=== PATIENT | female | born 1940 | race Caucasian/White ===

== ENCOUNTER → 2016-07-27 | Day surgery (SDC) | payer MEDICARE, OTHER ==
[2016-07-25 12:37] LABS: Basophils # (auto) 0 uL; Basophils % (auto) 0.6 % (0.0-2.0); DEFINITIVE VIEW TRANSMISSION; Eosinophils # (auto) 0.6 uL; Eosinophils % (auto) 7.5 % (0.0-7.0); Hematocrit 41.1 % (36.0-46.0); Hemoglobin 12.9 g/dL (12.2-16.2); Lymphocytes # (auto) 2.6 uL; Lymphocytes % (auto) 35.4 % (10.0-50.0); Mean Corpuscular Hgb Conc. 31.5 g/dL (32.0-36.0); Mean Corpuscular Volume 79.2 fL (80.0-100.0); Monocytes # (auto) 0.6 uL; Neutrophils # (auto) 3.6 uL; Neutrophils % (auto) 48.5 % (37.0-80.0); Platelet Count (auto) 308 10^3/uL (140-450); Red Cell Distribution Width 17.8 % (11.6-16.0); White Blood Cell 7.4 10^3/uL (4.4-10.8)
[2016-07-25 12:42] LABS: INR 0.98 (0.9-1.15); Prothrombin Time 10.1 sec (9.37-12.3)
[~2016-07-27] VITALS: Ht 149.9 cm; Wt 74.8 kg
[~2016-07-27] MED LIST: ASPI81TA27 PO; ESOM40CA39 OR; EZET10TA38 OR; HYDR25TA4 PO; LEVO50TA7 OR; LIDOCAINE VISCOUS 2% 15ML UD ONE; METO25TA62 OR; POT10T PO; SODIUM CHLORIDE LOCK 10 ML ONE; diphenhdrAMINE HCL 50 MG/1 ML VL ONE
[2016-07-27] MEDS: fentaNYL CITRATE 100 MCG/2 ML VL ONE ×2 (10:41→10:44)
[2016-07-27] MEDS: MIDAZOLAM HCL 5 MG/ML-1ML VIAL ONE ×2 (10:41→10:44)
[2016-07-27 11:30] VITALS: BP 110/67
== END | disposition home or self-care (01) ==
LOC: GI 09:20
PROVIDERS: ATTEND Internal Medicine Gastroenterology
DX: R13.10 Dysphagia, unspecified (principal); Z90.710 Acquired absence of both cervix and uterus
CPT/HCPCS: 36415; 43248; 85025; 85049; 85610; 85730; J2250; J3010; J7030

== ENCOUNTER → 2016-08-03 | Outpatient (CLI) | payer MEDICARE, OTHER ==
[~2016-08-03] MED LIST changes: -LIDOCAINE VISCOUS 2% 15ML UD ONE; -SODIUM CHLORIDE LOCK 10 ML ONE; -diphenhdrAMINE HCL 50 MG/1 ML VL ONE
[2016-08-03 12:03] LABS: Urine Bilirubin Negative (Negative); Urine Blood Negative /uL (Negative); Urine Color Yellow (Yellow); Urine Glucose Normal (Normal); Urine Ketone Negative (Negative); Urine Mucus FEW (None Seen); Urine Nitrite Negative (Negative); Urine RBC 2 /hpf (0 - 4); Urine Squamous Epithelial Cell FEW /hpf (<5); Urine Urobilinogen Normal (Negative); Urine pH 5.5 (5.0-8.0)
[2016-08-03 12:05] LABS: Albumin 3.8 g/dL (3.4-5.0); BUN/Creatinine Ratio 21.8; Bilirubin, Total 0.6 mg/dL (0.2-1.0); Calcium 9.1 mg/dL (8.5-10.1)
[2016-08-03 12:08] LABS: Basophils # (auto) 0 uL; Basophils % (auto) 0.6 % (0.0-2.0); DEFINITIVE VIEW TRANSMISSION; Eosinophils # (auto) 0.4 uL; Eosinophils % (auto) 6.2 % (0.0-7.0); Hematocrit 39.2 % (36.0-46.0); Hemoglobin 12.1 g/dL (12.2-16.2); Lymphocytes # (auto) 1.9 uL; Lymphocytes % (auto) 31.9 % (10.0-50.0); Mean Corpuscular Hemoglobin 24.3 pg (28.0-32.0); Mean Corpuscular Hgb Conc. 30.8 g/dL (32.0-36.0); Mean Corpuscular Volume 78.7 fL (80.0-100.0); Monocytes # (auto) 0.5 uL; Monocytes % (auto) 7.7 % (0.0-12.0); Neutrophils # (auto) 3.2 uL; Neutrophils % (auto) 53.6 % (37.0-80.0); Platelet Count (auto) 291 10^3/uL (140-450); Red Cell Distribution Width 17.7 % (11.6-16.0)
[2016-08-03 12:24] LABS: Potassium 3.8 mmol/L (3.5-5.1)
== END | disposition home or self-care (01) ==
LOC: LAB 10:35
PROVIDERS: ATTEND Internal Medicine
DX: Z00.00 Encounter for general adult medical examination without abnormal findings (principal); I10 Essential (primary) hypertension; Z68.29 Body mass index [BMI] 29.0-29.9, adult; E03.9 Hypothyroidism, unspecified
CPT/HCPCS: 36415; 80053; 80061; 81001; 82043; 83036; 84439; 84443; 84480; 84481; 85025

== ENCOUNTER → 2016-08-10 | Outpatient (CLI) | payer MEDICARE, OTHER | END | disposition home or self-care (01) | LOC: LAB 08:25 | PROVIDERS: ATTEND Internal Medicine | DX: I10 Essential (primary) hypertension (principal); Z00.00 Encounter for general adult medical examination without abnormal findings; Z68.29 Body mass index [BMI] 29.0-29.9, adult; E03.9 Hypothyroidism, unspecified | CPT/HCPCS: 82270 ==

== ENCOUNTER → 2017-10-08 | Outpatient (CLI) | payer MEDICARE, OTHER ==
[2017-10-08 08:39] LABS: Basophils # (auto) 0 uL; Basophils % (auto) 0.6 % (0.0-2.0); Eosinophils # (auto) 0.3 uL; Hematocrit 42.2 % (36.0-46.0); Hemoglobin 14.1 g/dL (12.2-16.2); Lymphocytes # (auto) 1.8 uL; Lymphocytes % (auto) 26.7 % (10.0-50.0); Mean Corpuscular Hemoglobin 29.5 pg (28.0-32.0); Mean Corpuscular Hgb Conc. 33.5 g/dL (32.0-36.0); Mean Corpuscular Volume 88.1 fL (80.0-100.0); Monocytes # (auto) 0.5 uL; Neutrophils % (auto) 60.7 % (37.0-80.0); Platelet Count (auto) 247 10^3/uL (140-450); Red Blood Cells 4.79 10^6/uL (4.0-5.20); Red Cell Distribution Width 13.1 % (11.8-14.3); White Blood Cell 6.6 10^3/uL (4.4-10.8)
[2017-10-08 08:52] LABS: Urine Bacteria FEW /hpf (None Seen); Urine Blood TRACE /uL (Negative); Urine Hyaline Cast FEW /lpf (0 - 2); Urine Mucus FEW (None Seen); Urine WBC 2 /hpf (0 - 5)
[2017-10-08 09:29] LABS: Albumin 3.7 g/dL (3.4-5.0); BUN/Creatinine Ratio 25.3; Bilirubin, Total 0.5 mg/dL (0.2-1.0); Calcium 8.9 mg/dL (8.5-10.1); Potassium 3.8 mmol/L (3.5-5.1)
== END | disposition home or self-care (01) ==
LOC: LAB 08:16
PROVIDERS: ATTEND Family Medicine
DX: I10 Essential (primary) hypertension (principal); E03.9 Hypothyroidism, unspecified; E78.2 Mixed hyperlipidemia; R79.89 Other specified abnormal findings of blood chemistry; E78.00 Pure hypercholesterolemia, unspecified; Z79.899 Other long term (current) drug therapy
CPT/HCPCS: 36415; 80053; 80061; 81001; 82306; 82607; 83036; 84443; 85025

== ENCOUNTER → 2017-12-04 | Outpatient (CLI) | payer MEDICARE, OTHER | END | disposition home or self-care (01) | LOC: LAB 09:07 | PROVIDERS: ATTEND Family Medicine | DX: E03.9 Hypothyroidism, unspecified (principal); I10 Essential (primary) hypertension; Z79.899 Other long term (current) drug therapy | CPT/HCPCS: 36415; 84443 ==

== ENCOUNTER 2018-02-18 07:51 | Day surgery (SDC) | payer MEDICARE, OTHER ==
[2018-02-14 12:23] LABS: Basophils # (auto) 0.1 uL; Basophils % (auto) 1.1 % (0.0-2.0); Eosinophils # (auto) 0.4 uL; Eosinophils % (auto) 5.8 % (0.0-7.0); Hematocrit 44.1 % (36.0-46.0); Hemoglobin 14.8 g/dL (12.2-16.2); Lymphocytes # (auto) 1.7 uL; Lymphocytes % (auto) 26.2 % (10.0-50.0); Mean Corpuscular Hemoglobin 29.7 pg (28.0-32.0); Mean Corpuscular Hgb Conc. 33.6 g/dL (32.0-36.0); Mean Corpuscular Volume 88.2 fL (80.0-100.0); Monocytes # (auto) 0.5 uL; Monocytes % (auto) 7.4 % (0.0-12.0); Neutrophils # (auto) 3.9 uL; Neutrophils % (auto) 59.5 % (37.0-80.0); Nucleated Red Blood Cells % 0.1 %; Platelet Count (auto) 276 10^3/uL (140-450); Red Cell Distribution Width 13.4 % (11.8-14.3); White Blood Cell 6.5 10^3/uL (4.4-10.8)
[2018-02-14 12:27] LABS: INR 0.96 (0.9-1.15); Partial Thromboplastin Time 26.6 sec (23.78-33.04); Prothrombin Time 10.3 sec (9.27-12.13)
[~2018-02-18] VITALS: Ht 152.4 cm; Wt 71.7 kg
[2018-02-18] MEDS ORDERED: SODIUM CHLORIDE LOCK 10 ML ONE (08:24)
[2018-02-18] MEDS ORDERED: diphenhdrAMINE HCL 50 MG/1 ML VL ONE (08:24)
[2018-02-18] MEDS ORDERED: MIDAZOLAM HCL 5 MG/ML-1ML VIAL ONE (08:24)
[2018-02-18] MEDS ORDERED: FLUMAZENIL 0.1 MG/ML INJ 10ML MDV IV ONE (08:24)
[2018-02-18] MEDS ORDERED: LIDOCAINE VISCOUS 2% 15ML UD ONE (08:24)
[2018-02-18] MEDS ORDERED: NALOXONE HCL 0.4 MG/ML VIAL ONE (08:24)
[2018-02-18] MEDS ORDERED: fentaNYL CITRATE 100 MCG/2 ML VL ONE (08:25)
[2018-02-18 09:36] VITALS: BP 124/70
== END 2018-02-18 09:41 | disposition home or self-care (01) ==
LOC: GI 07:51
PROVIDERS: ATTEND Internal Medicine Gastroenterology
DX: R13.10 Dysphagia, unspecified (principal); E66.9 Obesity, unspecified; I10 Essential (primary) hypertension; E03.9 Hypothyroidism, unspecified; E78.5 Hyperlipidemia, unspecified; K21.9 Gastro-esophageal reflux disease without esophagitis; I34.1 Nonrheumatic mitral (valve) prolapse; Z90.710 Acquired absence of both cervix and uterus; Z96.651 Presence of right artificial knee joint; Z98.890 Other specified postprocedural states; Z79.82 Long term (current) use of aspirin; Z79.899 Other long term (current) drug therapy
CPT/HCPCS: 36415; 43248; 85025; 85610; 85730; J2250; J3010; J7030; A6257

== ENCOUNTER → 2018-11-18 | Day surgery (SDC) | payer MEDICARE, OTHER ==
[2018-11-15 09:07] LABS: Basophils # (auto) 0.1 uL; Eosinophils # (auto) 0.8 uL; Eosinophils % (auto) 11.1 % (0.0-7.0); Hematocrit 44.2 % (36.0-46.0); Hemoglobin 15.1 g/dL (12.2-16.2); Mean Corpuscular Hemoglobin 31.1 pg (28.0-32.0); Mean Corpuscular Hgb Conc. 34.2 g/dL (32.0-36.0); Mean Corpuscular Volume 90.9 fL (80.0-100.0); Monocytes # (auto) 0.6 uL; Neutrophils # (auto) 3.5 uL; Neutrophils % (auto) 49.9 % (37.0-80.0); Nucleated Red Blood Cells % 0.1 %; Platelet Count (auto) 220 10^3/uL (140-450); Red Blood Cells 4.86 10^6/uL (4.0-5.20); Red Cell Distribution Width 12.8 % (11.8-14.3); White Blood Cell 6.9 10^3/uL (4.4-10.8)
[2018-11-15 09:21] LABS: INR 0.94 (0.9-1.15)
[~2018-11-18] VITALS: Ht 152.4 cm; Wt 68.9 kg
[~2018-11-18] MED LIST changes: +LIDOCAINE VISCOUS 2% 15ML UD ONE; +SODIUM CHLORIDE LOCK 10 ML ONE; +diphenhdrAMINE HCL 50 MG/1 ML VL ONE
[2018-11-18] MEDS: fentaNYL CITRATE 100 MCG/2 ML VL ONE ×2 (10:31→10:35)
[2018-11-18] MEDS: MIDAZOLAM HCL 5 MG/ML-1ML VIAL ONE ×2 (10:31→10:35)
[2018-11-18 11:25] VITALS: BP 121/68
== END | disposition home or self-care (01) ==
LOC: GI 09:19
PROVIDERS: ATTEND Internal Medicine Gastroenterology
DX: K29.50 Unspecified chronic gastritis without bleeding (principal); K21.9 Gastro-esophageal reflux disease without esophagitis; E66.9 Obesity, unspecified; Z90.710 Acquired absence of both cervix and uterus; Z68.29 Body mass index [BMI] 29.0-29.9, adult; Z79.82 Long term (current) use of aspirin; Z79.899 Other long term (current) drug therapy
CPT/HCPCS: 36415; 43239; 43450; 85025; 85610; 85730; J2250; J3010; 99152

== ENCOUNTER → 2018-12-20 | Outpatient (CLI) | payer MEDICARE, OTHER ==
[~2018-12-20] MED LIST changes: -LIDOCAINE VISCOUS 2% 15ML UD ONE; -SODIUM CHLORIDE LOCK 10 ML ONE; -diphenhdrAMINE HCL 50 MG/1 ML VL ONE
[2018-12-20 13:19] LABS: Albumin 3.5 g/dL (3.4-5.0); BUN/Creatinine Ratio 14.3
[2018-12-20 13:28] LABS: Basophils # (auto) 0.1 uL; Eosinophils # (auto) 0.3 uL; Eosinophils % (auto) 4.6 % (0.0-7.0); Hematocrit 41.8 % (36.0-46.0); Hemoglobin 14.2 g/dL (12.2-16.2); Lymphocytes # (auto) 1.3 uL; Lymphocytes % (auto) 20.2 % (10.0-50.0); Mean Corpuscular Hemoglobin 30.9 pg (28.0-32.0); Mean Corpuscular Hgb Conc. 33.8 g/dL (32.0-36.0); Mean Corpuscular Volume 91.3 fL (80.0-100.0); Monocytes # (auto) 0.4 uL; Monocytes % (auto) 6.6 % (0.0-12.0); Neutrophils # (auto) 4.4 uL; Neutrophils % (auto) 67.6 % (37.0-80.0); Platelet Count (auto) 282 10^3/uL (140-450); Red Blood Cells 4.58 10^6/uL (4.0-5.20); Red Cell Distribution Width 13.2 % (11.8-14.3); White Blood Cell 6.5 10^3/uL (4.4-10.8)
[2018-12-20 14:01] LABS: Bilirubin, Total 0.9 mg/dL (0.2-1.0); Total Protein 8.3 g/dL (6.4-8.2)
[2018-12-20 15:19] LABS: Urine Bacteria FEW /hpf (None Seen); Urine Blood Negative /uL (Negative); Urine Mucus FEW (None Seen); Urine Specific Gravity 1.026 (1.001-1.035); Urine WBC 6 /hpf (0 - 5)
== END | disposition home or self-care (01) ==
LOC: LAB 11:28
PROVIDERS: ATTEND Family Medicine
DX: E78.2 Mixed hyperlipidemia (principal); I10 Essential (primary) hypertension; Z79.899 Other long term (current) drug therapy
CPT/HCPCS: 36415; 80053; 80061; 81001; 82306; 84443; 85025

== ENCOUNTER → 2019-01-06 | Outpatient (CLI) | payer MEDICARE, OTHER ==
[2019-01-06 13:50] LABS: Albumin 3.6 g/dL (3.4-5.0); Bilirubin, Direct 0.2 mg/dL (0-0.2)
[2019-01-06 13:52] LABS: Bilirubin, Total 0.7 mg/dL (0.2-1.0); Total Protein 7.9 g/dL (6.4-8.2)
[2019-01-06 13:58] LABS: Hepatitis B Surface Antibody Negative
[2019-01-06 14:31] LABS: Hepatitis A Total Antibody Positive
[2019-01-06 17:26] LABS: Hepatitis B Core Total AB Negative; Hepatitis B Surface Antigen Negative (Negative); Hepatitis C Antibody Negative (Negative)
== END | disposition home or self-care (01) ==
LOC: LAB 10:57
PROVIDERS: ATTEND Family Medicine
DX: R94.5 Abnormal results of liver function studies (principal); Z11.59 Encounter for screening for other viral diseases
CPT/HCPCS: 36415; 80076; 86704; 86706; 86708; 86803; 87340

== ENCOUNTER → 2019-02-14 | Outpatient (CLI) | payer MEDICARE, OTHER ==
[~2019-02-14] MED LIST changes: +ASPI-404 PO; -ASPI81TA27 PO; +EZET10TA24 OR; -EZET10TA38 OR
[2019-02-14 10:08] LABS: Potassium 3.6 mmol/L (3.5-5.1)
[2019-02-14 10:25] LABS: Albumin 3.4 g/dL (3.4-5.0); BUN/Creatinine Ratio 23.2; Bilirubin, Total 0.5 mg/dL (0.2-1.0); Calcium 8.8 mg/dL (8.5-10.1); Total Protein 7.7 g/dL (6.4-8.2)
== END | disposition home or self-care (01) ==
LOC: LAB 08:48
PROVIDERS: ATTEND Family Medicine
DX: E78.2 Mixed hyperlipidemia (principal); R94.5 Abnormal results of liver function studies
CPT/HCPCS: 36415; 80053; 80061

== ENCOUNTER 2019-04-17 16:29 | Inpatient (IN) | payer MEDICARE, OTHER ==
[~2019-04-17] VITALS: Ht 152.4 cm; Wt 76.8 kg
[2019-04-17] MEDS ORDERED: LABETALOL HCL 5 MG/ML ML 20ML VIAL IV ONE (17:00)
[2019-04-17 17:13] LABS: Basophils # (auto) 0.1 uL; Basophils % (auto) 0.9 % (0.0-2.0); Eosinophils # (auto) 0.6 uL; Eosinophils % (auto) 8.1 % (0.0-7.0); Hematocrit 41.7 % (36.0-46.0); Hemoglobin 14.3 g/dL (12.2-16.2); Lymphocytes # (auto) 1.7 uL; Lymphocytes % (auto) 24.2 % (10.0-50.0); Mean Corpuscular Hemoglobin 30.5 pg (28.0-32.0); Mean Corpuscular Hgb Conc. 34.2 g/dL (32.0-36.0); Mean Corpuscular Volume 89.1 fL (80.0-100.0); Monocytes # (auto) 0.6 uL; Monocytes % (auto) 8.4 % (0.0-12.0); Neutrophils # (auto) 4.1 uL; Neutrophils % (auto) 58.4 % (37.0-80.0); Nucleated Red Blood Cells % 0.1 %; Platelet Count (auto) 212 10^3/uL (140-450); Red Blood Cells 4.68 10^6/uL (4.0-5.20); Red Cell Distribution Width 13.3 % (11.8-14.3)
[2019-04-17 17:18] LABS: Alanine Aminotransferase 26 U/L (13-56); Albumin 3.6 g/dL (3.4-5.0); Anion Gap 8 (5-15); Aspartate Aminotransferase 25 U/L (15-37); BUN/Creatinine Ratio 14.7; Blood Urea Nitrogen 14 mg/dL (7-18); Calcium 8.9 mg/dL (8.5-10.1); Carbon Dioxide 27 mmol/L (21-32); Chloride 105 mmol/L (98-107); GFR African American 73 mL/min; GFR Non-African American 61 mL/min; Glucose 103 mg/dL (74-106); Potassium 3.6 mmol/L (3.5-5.1); Sodium 140 mmol/L (136-145)
[2019-04-17 17:23] LABS: Alkaline Phosphatase 76 U/L (45-117); Bilirubin, Total 0.7 mg/dL (0.2-1.0); Total Protein 7.7 g/dL (6.4-8.2)
[2019-04-17 18:48] LABS: Urine Bacteria FEW /hpf (None Seen); Urine Blood Negative /uL (Negative); Urine Specific Gravity 1.009 (1.001-1.035); Urine WBC 2 /hpf (0 - 5)
[2019-04-17] MEDS ORDERED: NITROGLYCERIN 0.4 MG SL TAB SL PRN (19:45)
[2019-04-17] MEDS ORDERED: MORPHINE SULF INJ 2 MG/ML SYRINGE 1ML IV PRN (19:45)
[2019-04-17] MEDS ORDERED: ONDANSETRON HCL 4 MG/2 ML VIAL IV PRN (21:15)
[2019-04-17] MEDS ORDERED: TEMAZEPAM 15 MG CAP PO PRN (21:15)
[2019-04-17] MEDS ORDERED: ACETAMINOPHEN 325 MG TAB PO PRN (21:15)
[2019-04-17] MEDS ORDERED: HYDROcodone-ACET 5/325MG TAB PO PRN (21:15)
[2019-04-17] MEDS ORDERED: FAMOTIDINE 20 MG TAB PO SCH (22:00)
[2019-04-17] MEDS ORDERED: ATORVASTATIN 20 MG TAB PO ONE (22:45)
[2019-04-17 22:50] VITALS: BP 159/79
--- NOTE | 2019-04-17 22:50 | NUR ---
Telemetry admit from [facility] admitted to Telemetry unit after SBAR received. Patient oriented to ANNE ASH, RN primary RN, unit, room, bed, and unit policies regarding patient care and visiting hours. Patient now on continuous telemetry monitoring, tele box # 72 and telemetry reading on arrival to unit is SR. Patient placed on bedside oxygen, weighed by bedscale and encouraged to call if they need something. All questions and concerns addressed, patient verbalized understanding.
[2019-04-17] MEDS: ASPirin 81 mg TAB PO SCH (23:09)
[2019-04-18 05:05] VITALS: BP 148/84
[2019-04-18] MEDS: LEVOTHYROXINE SODIUM 50 MCG TAB PO SCH (06:30)
[2019-04-18 07:11] LABS: Basophils # (auto) 0.1 uL; Basophils % (auto) 1.2 % (0.0-2.0); Eosinophils # (auto) 0.4 uL; Hematocrit 42.1 % (36.0-46.0); Hemoglobin 14.4 g/dL (12.2-16.2); Lymphocytes # (auto) 1.4 uL; Mean Corpuscular Hemoglobin 30.9 pg (28.0-32.0); Mean Corpuscular Hgb Conc. 34.3 g/dL (32.0-36.0); Mean Corpuscular Volume 90.1 fL (80.0-100.0); Monocytes # (auto) 0.5 uL; Neutrophils # (auto) 3.6 uL; Neutrophils % (auto) 59.8 % (37.0-80.0); Nucleated Red Blood Cells % 0.1 %; Platelet Count (auto) 205 10^3/uL (140-450); Red Blood Cells 4.67 10^6/uL (4.0-5.20); Red Cell Distribution Width 13.6 % (11.8-14.3)
[2019-04-18 07:28] LABS: INR 1.02 (0.9-1.15); Partial Thromboplastin Time 26.8 sec (23.64-32.05)
[2019-04-18 07:32] LABS: Albumin 3.3 g/dL (3.4-5.0); Calcium 8.6 mg/dL (8.5-10.1); Magnesium 2.4 mg/dL (1.6-2.6); Potassium 3.2 mmol/L (3.5-5.1)
[2019-04-18 07:37] LABS: BUN/Creatinine Ratio 18.3; Bilirubin, Total 0.8 mg/dL (0.2-1.0); Cholesterol 158 mg/dL (< 200); HDL Cholesterol 43 mg/dL (40-59); LDL Cholesterol 111 mg/dL (< 100); Total Protein 7.4 g/dL (6.4-8.2); Triglycerides 153 mg/dL (< 150)
--- NOTE | 2019-04-18 07:50 | NUR ---
Opening Shift Note Assumed care of patient, AAx4. No S/S of distress/SOB or pain. Patient denies chest pain. Respirations are even, unlabored, and symmetrical chest shape. Patient has left AC 22 gauge saline locked. Patient is NPO. Instructed on POC and to call for assist PRN, will continue to monitor for changes Q1hr and PRN.
--- NOTE | 2019-04-18 07:54 | NUR ---
High Critical Value Received critical lab value for troponin. audio operator hospitalist, CLAU Smith was paged and notified for values 0.607 and 1.24. Recommendation was to ensure patient is NPO and to ensure that cardiac consult is in place. Will follow-up with Dr. Hernandez for consult.
--- NOTE | 2019-04-18 08:24 | NUR ---
Notified - Dr. Hernandez Updated Dr. Hernandez of patient's critical troponin value and patient's status. POC discussed. Orders received and read back to verify. Patient is asymptomatic. Will continue to monitor q1hr & PRN.
[2019-04-18 09:00] VITALS: BP 149/81
--- NOTE | 2019-04-18 09:58 | NUR ---
TRANSFER: Per Nayeli at [facility] , pt is not a candidate for heart transplant. Pt is too nutritionally unsound for evaluation at this time. Dr. Hernandez spoke extensively to [facility] chemistry technician and this was the outcome of that conversation, I paged Dr. Moise to see what is D/C plan for this pt Addendum: 04/18/19 at 1004 by Marissa Chung RN CM wrong pt
[2019-04-18] MEDS: ENOXAPARIN SOD 80 MG/0.8ML SYRINGE SC SCH ×2 (10:00→22:14)
[2019-04-18] MEDS ORDERED: ASPirin 81 mg TAB PO SCH (10:00)
[2019-04-18] MEDS: FAMOTIDINE 20 MG TAB PO SCH (10:14)
[2019-04-18] MEDS: HCTZ 25 MG TAB PO SCH (10:15)
[2019-04-18] MEDS: CLOPIDOGREL BISULFATE 75 MG TAB PO SCH (10:15)
[2019-04-18] MEDS: METOPROLOL SUCCINATE XL 50 MG TAB PO SCH (10:16)
[2019-04-18] MEDS: ASPirin 81 mg TAB PO SCH (10:17)
--- NOTE | 2019-04-18 10:20 | NUR ---
Medication held per MD order Scheduled Lovenox held for possible procedure per Dr. Hernandez.
--- NOTE | 2019-04-18 11:15 | NUR ---
MD Communication Dr. Suggs was notified in person that patient's potassium level 3.2. MD verbalized understanding.
[2019-04-18] MEDS ORDERED: ADENOSINE 61 MG in GIVE UN-DILUTED 0 ML IV STA (11:56)
[2019-04-18 13:00] VITALS: BP 148/78
--- NOTE | 2019-04-18 13:18 | NUR ---
Patient off unit via wheelchair to stress test. Respirations even and unlabored, no distress noted.
--- NOTE | 2019-04-18 14:20 | NUR ---
Sociial Service consult regarding Advance Directives. Provided pt with information on Advance Directives and Durable Power of real estate associate attorney form. Pt verbalized understanding and refused the information. Pt already has one in place, Will contact Analytics Analyst for any further concerns or issues.
--- NOTE | 2019-04-18 14:34 | NUR ---
Patient returned to room via wheelchair respiration even and unlabored, no distress noted. Call light within reach.
[2019-04-18 17:04] VITALS: BP 136/70
--- NOTE | 2019-04-18 17:46 | NUR ---
Patient transferred to room 277B All of patient's belongings transferred with the patient. Patient's significant other at bedside.
--- NOTE | 2019-04-18 18:30 | NUR ---
MD was at bedside - Dr. Mary ROSARIO updated patient and patient's spouse on echocardiogram and stress test results as well as the POC. Patient and patient's spouse verbalized understanding to all.
--- NOTE | 2019-04-18 18:59 | NUR ---
Closing note - care endorsed to ELAINE Carter Patient resting in bed with even and unlabored respirations, no distress noted. Fall precautions in place with call light within reach. Patient denies CP. Further care endorsed to ELAINE Carter.
--- NOTE | 2019-04-18 19:00 | NUR ---
Opening Shift Note Assumed care of patient, awake and alert. No S/S of distress/SOB or pain. Instructed on POC and to call for assist PRN, will continue to monitor for changes Q1hr and PRN.
[2019-04-18 21:54] VITALS: BP 126/70
[2019-04-18] MEDS: ATORVASTATIN 20 MG TAB PO SCH (22:14)
[2019-04-19 05:25] VITALS: BP 133/72
[2019-04-19] MEDS: LEVOTHYROXINE SODIUM 50 MCG TAB PO SCH (06:30)
[2019-04-19 09:00] VITALS: BP 118/70
[2019-04-19] MEDS: CLOPIDOGREL BISULFATE 75 MG TAB PO SCH (09:51)
[2019-04-19] MEDS: FAMOTIDINE 20 MG TAB PO SCH (09:51)
[2019-04-19] MEDS: ENOXAPARIN SOD 80 MG/0.8ML SYRINGE SC SCH ×2 (09:51→21:29)
[2019-04-19] MEDS: ASPirin 81 mg TAB PO SCH (09:51)
[2019-04-19] MEDS: METOPROLOL SUCCINATE XL 50 MG TAB PO SCH (09:51)
[2019-04-19] MEDS: HCTZ 25 MG TAB PO SCH (09:52)
[2019-04-19 13:00] VITALS: BP 128/75
--- NOTE | 2019-04-19 14:41 | NUR ---
Consents Signed for [facility] 04/21/19 Pt stated she did not have any questions about the procedure on Sunday. Forms are signed and placed in the chart. Pt and requested a copy of consents; provided to pt.
[2019-04-19 17:00] VITALS: BP 116/83
[2019-04-19] MEDS: ATORVASTATIN 20 MG TAB PO SCH (21:29)
[2019-04-19 21:30] VITALS: BP 122/74
[2019-04-20 05:46] VITALS: BP 128/82
[2019-04-20] MEDS: LEVOTHYROXINE SODIUM 50 MCG TAB PO SCH (06:17)
[2019-04-20 06:24] LABS: Basophils # (auto) 0.1 uL; Basophils % (auto) 1.2 % (0.0-2.0); Eosinophils # (auto) 0.6 uL; Eosinophils % (auto) 8.6 % (0.0-7.0); Hematocrit 43.9 % (36.0-46.0); Hemoglobin 15.1 g/dL (12.2-16.2); Lymphocytes # (auto) 2.1 uL; Lymphocytes % (auto) 31.9 % (10.0-50.0); Mean Corpuscular Hemoglobin 30.7 pg (28.0-32.0); Mean Corpuscular Hgb Conc. 34.5 g/dL (32.0-36.0); Monocytes # (auto) 0.6 uL; Monocytes % (auto) 9.6 % (0.0-12.0); Neutrophils # (auto) 3.3 uL; Neutrophils % (auto) 48.7 % (37.0-80.0); Nucleated Red Blood Cells % 0.1 %; Platelet Count (auto) 209 10^3/uL (140-450); Red Blood Cells 4.93 10^6/uL (4.0-5.20); Red Cell Distribution Width 13.4 % (11.8-14.3); White Blood Cell 6.7 10^3/uL (4.4-10.8)
[2019-04-20 06:49] LABS: BUN/Creatinine Ratio 23.5; Potassium 3.2 mmol/L (3.5-5.1)
--- NOTE | 2019-04-20 07:33 | NUR ---
Opening Note Assumed pt care from [facility] nurse. Pt is a/ox4 with no s/s of distress or SOB. Pt is currently laying in bed with no complaints. Discussed POC with pt; pt verbalized understanding. Safety measures maintained with call light within reach, bed in lowest position and side rails up. Will continue to monitor for changes q1hr and prn.
[2019-04-20 08:30] VITALS: BP 114/68
[2019-04-20] MEDS: ASPirin 81 mg TAB PO SCH (09:09)
[2019-04-20] MEDS: CLOPIDOGREL BISULFATE 75 MG TAB PO SCH (09:09)
[2019-04-20] MEDS: ENOXAPARIN SOD 80 MG/0.8ML SYRINGE SC SCH ×2 (09:09→21:53)
[2019-04-20] MEDS: FAMOTIDINE 20 MG TAB PO SCH (09:09)
[2019-04-20] MEDS: HCTZ 25 MG TAB PO SCH (09:09)
[2019-04-20] MEDS: METOPROLOL SUCCINATE XL 50 MG TAB PO SCH (09:09)
[2019-04-20 12:32] VITALS: BP 143/91
[2019-04-20] MEDS ORDERED: POTASSIUM EFFERVESENT TAB 25 MEQ PO ONE (14:30)
[2019-04-20 16:49] VITALS: BP 149/63
[2019-04-20 16:52] VITALS: BP 138/77
[2019-04-20 20:33] LABS: BUN/Creatinine Ratio 13.6
[2019-04-20] MEDS: ATORVASTATIN 20 MG TAB PO SCH (21:36)
--- NOTE | 2019-04-20 21:38 | NUR ---
DR. HAY CALLED TO ORDER ME TO PUT IN AN ORDER FOR LEFT HEART CATH/ N-STEMI, TO BE DONE BY DR. PELAEZ. REPEATED ORDERS TO VERIFIED WILL FOLLOW ORDERED.
[2019-04-20 22:00] VITALS: BP 106/68
[2019-04-21 05:44] VITALS: BP 134/73
[2019-04-21 06:17] LABS: Basophils # (auto) 0.1 uL; Basophils % (auto) 1.2 % (0.0-2.0); Eosinophils # (auto) 0.6 uL; Eosinophils % (auto) 9.8 % (0.0-7.0); Hematocrit 43.8 % (36.0-46.0); Hemoglobin 15.2 g/dL (12.2-16.2); Lymphocytes % (auto) 33.6 % (10.0-50.0); Mean Corpuscular Hgb Conc. 34.7 g/dL (32.0-36.0); Mean Corpuscular Volume 89.4 fL (80.0-100.0); Monocytes # (auto) 0.6 uL; Monocytes % (auto) 9.2 % (0.0-12.0); Neutrophils # (auto) 2.8 uL; Neutrophils % (auto) 46.2 % (37.0-80.0); Nucleated Red Blood Cells % 0.2 %; Platelet Count (auto) 204 10^3/uL (140-450); Red Blood Cells 4.89 10^6/uL (4.0-5.20); Red Cell Distribution Width 13.2 % (11.8-14.3)
[2019-04-21] MEDS: LEVOTHYROXINE SODIUM 50 MCG TAB PO SCH (06:17)
[2019-04-21 06:39] LABS: BUN/Creatinine Ratio 22.1; Calcium 8.9 mg/dL (8.5-10.1); Potassium 3.6 mmol/L (3.5-5.1)
[2019-04-21 08:00] VITALS: BP 127/75
--- NOTE | 2019-04-21 09:07 | NUR ---
Opening Shift Note Assumed care of patient, awake and alert. No S/S of distress/SOB or pain. Instructed on POC and to call for assist PRN, will continue to monitor for changes Q1hr and PRN. Addendum: 04/21/19 at 0908 by Yamileth Lentz RN Time should be 08:10
[2019-04-21 09:14] VITALS: BP 125/75
[2019-04-21] MEDS: ENOXAPARIN SOD 80 MG/0.8ML SYRINGE SC SCH ×2 (10:00→21:51)
[2019-04-21] MEDS: ASPirin 81 mg TAB PO SCH (10:02)
[2019-04-21] MEDS: FAMOTIDINE 20 MG TAB PO SCH (10:02)
[2019-04-21] MEDS: CLOPIDOGREL BISULFATE 75 MG TAB PO SCH (10:02)
[2019-04-21] MEDS: METOPROLOL SUCCINATE XL 50 MG TAB PO SCH (10:04)
[2019-04-21] MEDS: HCTZ 25 MG TAB PO SCH (10:05)
[2019-04-21 13:00] VITALS: BP 126/87
[2019-04-21] MEDS ORDERED: ANGIOMAX 250 MG VIAL IV ONE (13:40)
[2019-04-21] MEDS ORDERED: fentaNYL CITRATE 100 MCG/2 ML VL ONE (13:40)
[2019-04-21] MEDS ORDERED: MIDAZOLAM HCL 1MG/1ML-2 ML VIAL ONE (13:41)
[2019-04-21] MEDS ORDERED: SODIUM CHL 0.9% 0 ML ONE (13:41)
[2019-04-21] MEDS ORDERED: IOHEXOL 350 MG/ML 100ML IJ ONE ×2 (13:53→13:59)
[2019-04-21] MEDS ORDERED: LIDOCAINE 2%HCL (LOCAL ANESTH.) INJ 20ML MDV ONE (13:59)
--- NOTE | 2019-04-21 14:37 | NUR ---
Nutrition Assessment Notes please see attached link for complete assessment Est. Needs ABW 60 [id number] kcal (23-25 kcal/kgBW), 60-66 gms pro (1.0-1.1 gms/kgBW). Will continue to monitor pertinent labs and reassess nutrient need prn Addendum: 04/21/19 at [address] Amended: Links added.
[2019-04-21 17:29] VITALS: BP 128/79
--- NOTE | 2019-04-21 19:40 | NUR ---
Opening Shift Note Assumed care of patient, awake and alert. No S/S of distress/SOB or pain. Instructed on POC and to call for assist PRN, will continue to monitor for changes Q1hr and PRN. Patient happy to know about her procedure results.
[2019-04-21] MEDS: ATORVASTATIN 20 MG TAB PO SCH (21:51)
[2019-04-21 21:59] VITALS: BP 122/70
[2019-04-22 05:43] VITALS: BP 130/71
[2019-04-22 05:57] LABS: Basophils # (auto) 0.1 uL; Basophils % (auto) 0.9 % (0.0-2.0); Eosinophils # (auto) 0.6 uL; Eosinophils % (auto) 8.3 % (0.0-7.0); Hematocrit 42.7 % (36.0-46.0); Hemoglobin 14.9 g/dL (12.2-16.2); Lymphocytes % (auto) 27.8 % (10.0-50.0); Mean Corpuscular Hemoglobin 31.2 pg (28.0-32.0); Mean Corpuscular Hgb Conc. 34.8 g/dL (32.0-36.0); Mean Corpuscular Volume 89.5 fL (80.0-100.0); Monocytes # (auto) 0.6 uL; Monocytes % (auto) 8.9 % (0.0-12.0); Neutrophils # (auto) 3.9 uL; Neutrophils % (auto) 54.1 % (37.0-80.0); Platelet Count (auto) 204 10^3/uL (140-450); Red Blood Cells 4.77 10^6/uL (4.0-5.20); Red Cell Distribution Width 13.5 % (11.8-14.3); White Blood Cell 7.2 10^3/uL (4.4-10.8)
[2019-04-22] MEDS: LEVOTHYROXINE SODIUM 50 MCG TAB PO SCH (06:17)
[2019-04-22 06:35] LABS: Calcium 8.8 mg/dL (8.5-10.1); Potassium 3.4 mmol/L (3.5-5.1)
[2019-04-22 06:38] LABS: Albumin 3.4 g/dL (3.4-5.0); BUN/Creatinine Ratio 24.1; Bilirubin, Total 0.7 mg/dL (0.2-1.0); Total Protein 7.2 g/dL (6.4-8.2)
--- NOTE | 2019-04-22 08:00 | NUR ---
Patient holding her IV catheter, bleeding noted on the left antecubital area. Patient stated she accidentally pulled the IV line out. Cleaned the AC area, pressure dressing applied. Patient refused to have another IV line insertion, for possible discharge today. Patient is ambulatory, steady gait noted.
[2019-04-22 09:00] VITALS: BP 148/96
[2019-04-22] MEDS: ENOXAPARIN SOD 80 MG/0.8ML SYRINGE SC SCH (10:00)
--- NOTE | 2019-04-22 10:15 | NUR ---
Patient sitting on bed. at bedside.
[2019-04-22] MEDS: FAMOTIDINE 20 MG TAB PO SCH (10:16)
[2019-04-22] MEDS: CLOPIDOGREL BISULFATE 75 MG TAB PO SCH (10:17)
[2019-04-22] MEDS: ASPirin 81 mg TAB PO SCH (10:17)
[2019-04-22] MEDS: HCTZ 25 MG TAB PO SCH (10:18)
[2019-04-22] MEDS: METOPROLOL SUCCINATE XL 50 MG TAB PO SCH (10:18)
--- NOTE | 2019-04-22 11:30 | NUR ---
Dr. Moon at bedside. MD to discharge the patient today, he will call Dr. Merritt regarding medications as per Cardiology.
[2019-04-22 13:00] VITALS: BP 159/79
[2019-04-22 13:02] VITALS: BP 148/96
--- NOTE | 2019-04-22 13:28 | NUR ---
Discharge instructions given as ordered. Encourage to follow up with PMD as instructed. All questions and concerns addressed. Patient verbalized understanding. Medication reconciliation form completed and copy given to patient. IV line already out at 0800 am today. Telemetry unit returned to ICU. Patient is ambulatory, steady gait noted, refused to be taken to vehicle via wheelchair, patient with all personal belongings, accompanied by . No distress noted at time of departure.
--- NOTE | 2019-04-22 16:50 | NUR ---
assessment Patient has no post discharge needs at this time. Addendum: 04/22/19 at 1651 by Kaylie ARTEAGA Amended: Links added.
[2019-05-09] MEDS ORDERED: APIX5TAB PO (12:34)
== END 2019-04-22 13:28 | disposition home or self-care (01) | DRG 280 ==
LOC: ER 16:29 → EDBD 16:29 → TELE 16:30 → TELE-WESTW 22:56
PROVIDERS: ADMIT Hospitalist; ATTEND Internal Medicine
PROC: 4A023N7 Measurement of Cardiac Sampling and Pressure, Left Heart, Percutaneous Approach (ICD-10-PCS; principal; 2019-04-21)
PROC: B2111ZZ Fluoroscopy of Multiple Coronary Arteries using Low Osmolar Contrast (ICD-10-PCS; 2019-04-21)
PROC: B2151ZZ Fluoroscopy of Left Heart using Low Osmolar Contrast (ICD-10-PCS; 2019-04-21)
DX: I21.4 Non-ST elevation (NSTEMI) myocardial infarction (principal); N17.0 Acute kidney failure with tubular necrosis; I16.1 Hypertensive emergency; N39.0 Urinary tract infection, site not specified; N18.9 Chronic kidney disease, unspecified; I12.9 Hypertensive chronic kidney disease with stage 1 through stage 4 chronic kidney disease, or unspecified chronic kidney disease; E78.5 Hyperlipidemia, unspecified; E03.9 Hypothyroidism, unspecified; E66.9 Obesity, unspecified; E87.6 Hypokalemia; I35.8 Other nonrheumatic aortic valve disorders; Z79.899 Other long term (current) drug therapy; Z90.710 Acquired absence of both cervix and uterus; Z68.33 Body mass index [BMI] 33.0-33.9, adult
CPT/HCPCS: 36415; 71045; 78452; 80048; 80053; 80061; 81001; 83036; 83735; 84443; 84484; 85025; 85610; 85730; 86850; 86900; 86901; 87086; 93005; 93017; 93306; 93458; 96365; 96375; 99152; G0378; J0153; J2250

== ENCOUNTER 2019-05-08 01:50 | Inpatient (IN) | payer MEDICARE, OTHER ==
[~2019-05-08] VITALS: Ht 152.4 cm; Wt 76.0 kg
[2019-05-08] MEDS ORDERED: ADENOSINE 6 MG/2 ML INJ IV ONE ×2 (02:15)
[2019-05-08 02:31] LABS: Basophils # (auto) 0.1 uL; Basophils % (auto) 0.9 % (0.0-2.0); Eosinophils # (auto) 0.7 uL; Eosinophils % (auto) 7.3 % (0.0-7.0); Hemoglobin 15.2 g/dL (12.2-16.2); Lymphocytes % (auto) 30.4 % (10.0-50.0); Mean Corpuscular Hemoglobin 30.7 pg (28.0-32.0); Mean Corpuscular Hgb Conc. 34.5 g/dL (32.0-36.0); Mean Corpuscular Volume 88.8 fL (80.0-100.0); Monocytes # (auto) 0.9 uL; Monocytes % (auto) 8.8 % (0.0-12.0); Neutrophils # (auto) 5.1 uL; Neutrophils % (auto) 52.6 % (37.0-80.0); Nucleated Red Blood Cells % 0.1 %; Platelet Count (auto) 273 10^3/uL (140-450); Red Blood Cells 4.96 10^6/uL (4.0-5.20); Red Cell Distribution Width 13.5 % (11.8-14.3); White Blood Cell 9.7 10^3/uL (4.4-10.8)
[2019-05-08] MEDS ORDERED: DILTIAZEM 125mg/125ml BAG KIT 100 ML IV SCH (02:38)
[2019-05-08] MEDS ORDERED: DIGOXIN (250MCG/ML) 2 ML AMPULE ONE (02:41)
[2019-05-08] MEDS ORDERED: DILTIAZEM HCL 25 MG/5 ML VIAL IV ONE (02:45)
[2019-05-08] MEDS ORDERED: DIGOXIN (250MCG/ML) 2 ML AMPULE IV ONE (02:45)
[2019-05-08 02:51] LABS: Alanine Aminotransferase 28 U/L (13-56); Albumin 3.7 g/dL (3.4-5.0); Anion Gap 9 (5-15); Aspartate Aminotransferase 21 U/L (15-37); Blood Urea Nitrogen 18 mg/dL (7-18); Calcium 8.7 mg/dL (8.5-10.1); Carbon Dioxide 26 mmol/L (21-32); Chloride 104 mmol/L (98-107); GFR African American 78 mL/min; GFR Non-African American 65 mL/min; Glucose 112 mg/dL (74-106); Magnesium 2.2 mg/dL (1.6-2.6); Potassium 3.2 mmol/L (3.5-5.1); Sodium 139 mmol/L (136-145)
[2019-05-08 02:56] LABS: Alkaline Phosphatase 75 U/L (45-117); Bilirubin, Total 0.8 mg/dL (0.2-1.0); Total Protein 7.9 g/dL (6.4-8.2)
[2019-05-08 05:24] LABS: Urine Bacteria NONE SEEN /hpf (None Seen); Urine Blood Negative /uL (Negative); Urine Specific Gravity 1.009 (1.001-1.035); Urine WBC 1 /hpf (0 - 5)
[2019-05-08] MEDS ORDERED: POTASSIUM CHL 20 Meq TABLET PO ONE ×2 (06:30→11:15)
[2019-05-08] MEDS ORDERED: ONDANSETRON HCL 4 MG/2 ML VIAL IV PRN (06:30)
[2019-05-08] MEDS ORDERED: ACETAMINOPHEN 325 MG TAB PO PRN (06:30)
[2019-05-08] MEDS ORDERED: TEMAZEPAM 15 MG CAP PO PRN (06:30)
[2019-05-08] MEDS ORDERED: NITROGLYCERIN 0.4 MG SL TAB SL PRN (07:00)
[2019-05-08] MEDS ORDERED: MORPHINE SULF INJ 2 MG/ML SYRINGE 1ML IV PRN (07:00)
[2019-05-08] MEDS: LEVOTHYROXINE SODIUM 25 MCG TAB PO SCH (07:12)
[2019-05-08] MEDS: METOPROLOL SUCCINATE XL 50 MG TAB PO SCH (07:13)
[2019-05-08 10:00] VITALS: BP 133/69
[2019-05-08] MEDS ORDERED: ASPirin 81 mg TAB PO SCH (10:00)
[2019-05-08] MEDS ORDERED: ENOXAPARIN SOD 40 MG/0.4 ML SYRINGE SC SCH (10:00)
[2019-05-08] MEDS: VYTORIN PO SCH (10:00)
--- NOTE | 2019-05-08 10:10 | NUR ---
Telemetry admit from [facility] admitted to Telemetry unit after SBAR received from ELAINE Josue. Patient oriented to TRICE CHU RN primary RN, unit, room, bed, and unit policies regarding patient care and visiting hours. Patient now on continuous telemetry monitoring, tele box #60 and telemetry reading on arrival to unit is NSR 60bpm. Patient weighed by bedscale and encouraged to call if they need something with call light within reach. Bed in low/locked position, bed rails up x2. All questions and concerns addressed, patient verbalized understanding.
[2019-05-08 10:45] VITALS: BP 133/69
[2019-05-08] MEDS: FAMOTIDINE 20 MG TAB PO SCH ×2 (10:47→21:55)
[2019-05-08] MEDS: APIXABAN 5 MG TAB PO SCH ×2 (10:47→21:55)
[2019-05-08] MEDS: HCTZ 25 MG TAB PO SCH (10:48)
[2019-05-08 13:00] VITALS: BP 122/79
--- NOTE | 2019-05-08 14:15 | NUR ---
LAB MRSA SWAB SENT PER MD ORDER
[2019-05-08 17:00] VITALS: BP 119/70
--- NOTE | 2019-05-08 17:27 | NUR ---
PT REPORTS THAT SHE WALKS FINE AND DOES NOT NEED P.T.
--- NOTE | 2019-05-08 19:30 | NUR ---
RECEIVED PATIENT FROM DAY SHIFT RN. PATIENT RESTING IN BED. NO S/S OF DISTRESS NOTED. DENIED PAIN FOR NOW. POC INSTRUCTED AND ENCOURAGED PATIENT TO CALL FOR FINANCIAL AIDS OFFICER IF NEEDED. BED IN LOWEST POSITION WITH SIDE RAILS UP X 2. CALL KIRBY WITHIN REACH. ALARM ON. CONTINUE TO MONITOR FOR CHANGES Q1H AND PRN. .
--- NOTE | 2019-05-08 21:37 | NUR ---
PATIENT WALKED TO BATHROOM AND BACK TO BED WITH STEADY GAIT. NO S/S OF DISTRESS NOTED. DENIED ANY PAIN AND CHEST DISCOMFORT. CONTINUE TO MONITOR.
[2019-05-08 22:00] VITALS: BP 114/55
[2019-05-08] MEDS ORDERED: ATORVASTATIN 20 MG TAB PO SCH (22:00)
--- NOTE | 2019-05-09 02:45 | NUR ---
PATIENT SLEEPING. NO S/S OF DISTRESS NOTED. CONTINUE CARE.
[2019-05-09 05:00] VITALS: BP 118/63
[2019-05-09] MEDS: LEVOTHYROXINE SODIUM 25 MCG TAB PO SCH (06:26)
[2019-05-09 07:06] LABS: Basophils # (auto) 0.1 uL; Basophils % (auto) 1.4 % (0.0-2.0); Eosinophils # (auto) 0.7 uL; Eosinophils % (auto) 11.3 % (0.0-7.0); Hemoglobin 14.1 g/dL (12.2-16.2); Lymphocytes # (auto) 1.8 uL; Lymphocytes % (auto) 28.3 % (10.0-50.0); Mean Corpuscular Hemoglobin 31.2 pg (28.0-32.0); Mean Corpuscular Hgb Conc. 34.3 g/dL (32.0-36.0); Mean Corpuscular Volume 90.9 fL (80.0-100.0); Monocytes # (auto) 0.6 uL; Monocytes % (auto) 8.8 % (0.0-12.0); Neutrophils # (auto) 3.3 uL; Neutrophils % (auto) 50.2 % (37.0-80.0); Nucleated Red Blood Cells % 0.1 %; Platelet Count (auto) 226 10^3/uL (140-450); Red Blood Cells 4.51 10^6/uL (4.0-5.20); Red Cell Distribution Width 13.5 % (11.8-14.3); White Blood Cell 6.5 10^3/uL (4.4-10.8)
[2019-05-09 07:09] LABS: Calcium 8.7 mg/dL (8.5-10.1); Magnesium 2.3 mg/dL (1.6-2.6); Potassium 3.8 mmol/L (3.5-5.1)
[2019-05-09 07:11] LABS: BUN/Creatinine Ratio 21.5
--- NOTE | 2019-05-09 07:45 | NUR ---
Opening Shift Note Assumed care of patient, awake and alert. Respiratory even and unlabored. No S/S of distress/SOB or pain. Skin is warm and dry to touch. Instructed on POC and to call for assist PRN, will continue to monitor for changes Q1hr and PRN.
[2019-05-09 09:00] VITALS: BP 131/63
[2019-05-09] MEDS: FAMOTIDINE 20 MG TAB PO SCH (09:14)
[2019-05-09] MEDS: HCTZ 25 MG TAB PO SCH (09:14)
[2019-05-09] MEDS: APIXABAN 5 MG TAB PO SCH (09:14)
[2019-05-09] MEDS: VYTORIN PO SCH (09:15)
[2019-05-09] MEDS: METOPROLOL SUCCINATE XL 50 MG TAB PO SCH (09:15)
[2019-05-09] MEDS ORDERED: APIX5TAB PO (12:34)
[2019-05-09] MEDS ORDERED: POTASSIUM CHL 20 Meq TABLET PO ONE (12:45)
[2019-05-09 13:00] VITALS: BP 118/68
[2019-05-09 13:37] VITALS: BP 118/68
--- NOTE | 2019-05-09 15:06 | NUR ---
Discharge instructions given as ordered. Encourage to follow up with (Follow up with Dr. Cartagena in 05/19/19 at 3.20 PM # [phone] Ext [phone] Address [address] [facility], [place], [address]. Follow up with Dr. Andres Christensen in May 13 at 2.15 PM #[phone] Ext : [phone] Address : [address] [place] [address], [id number]) as instructed. All questions and concerns addressed. Patient verbalized understanding. Medication reconciliation form completed and copy given to patient. IV removed with catheter intact, pressure dressing applied. Telemetry unit returned to ICU. Patient taken to vehicle via wheelchair with all personal belongings, accompanied by staff and family member. No distress noted at time of departure.
== END 2019-05-09 15:00 | disposition home or self-care (01) | DRG 310 ==
LOC: ER 01:53 → EEVIPCON 01:53 → TELE 01:54 → WEST WING 10:30 → TELE-WESTW 05-09 06:46
PROVIDERS: ADMIT Nurse Practitioner; ATTEND Internal Medicine
DX: I47.1 Supraventricular tachycardia (principal); I48.91 Unspecified atrial fibrillation; I25.2 Old myocardial infarction; E87.6 Hypokalemia; I10 Essential (primary) hypertension; E03.9 Hypothyroidism, unspecified; G47.00 Insomnia, unspecified; E78.5 Hyperlipidemia, unspecified; Z98.61 Coronary angioplasty status; Z90.710 Acquired absence of both cervix and uterus; Z79.899 Other long term (current) drug therapy; Z68.32 Body mass index [BMI] 32.0-32.9, adult
CPT/HCPCS: 36415; 71045; 80048; 80053; 81001; 83735; 83880; 84443; 84484; 85025; 87081; 93005; 96365; 96375; G0378; J0153

== ENCOUNTER 2019-05-16 13:54 | Inpatient (IN) | payer MEDICARE, OTHER ==
[~2019-05-16] VITALS: Ht 152.4 cm; Wt 72.2 kg
[~2019-05-16 13:54] MED LIST changes: +APIX5TAB PO; -ASPI-404 PO
[2019-05-16] MEDS ORDERED: ASPirin 81 mg TAB PO ONE (14:30)
[2019-05-16 14:35] LABS: Basophils # (auto) 0.1 uL; Basophils % (auto) 1.2 % (0.0-2.0); Eosinophils # (auto) 0.6 uL; Eosinophils % (auto) 9.5 % (0.0-7.0); Hematocrit 44.2 % (36.0-46.0); Hemoglobin 15.2 g/dL (12.2-16.2); Lymphocytes # (auto) 1.9 uL; Lymphocytes % (auto) 28.4 % (10.0-50.0); Mean Corpuscular Hemoglobin 31.1 pg (28.0-32.0); Mean Corpuscular Hgb Conc. 34.4 g/dL (32.0-36.0); Mean Corpuscular Volume 90.2 fL (80.0-100.0); Monocytes # (auto) 0.5 uL; Monocytes % (auto) 7.7 % (0.0-12.0); Neutrophils # (auto) 3.6 uL; Neutrophils % (auto) 53.2 % (37.0-80.0); Nucleated Red Blood Cells % 0.1 %; Platelet Count (auto) 228 10^3/uL (140-450); Red Cell Distribution Width 13.4 % (11.8-14.3); White Blood Cell 6.8 10^3/uL (4.4-10.8)
[2019-05-16 15:04] LABS: INR 1.07 (0.9-1.15); Partial Thromboplastin Time 29.2 sec (23.64-32.05)
[2019-05-16 15:21] LABS: Alanine Aminotransferase 25 U/L (13-56); Albumin 3.8 g/dL (3.4-5.0); Anion Gap 8 (5-15); Aspartate Aminotransferase 22 U/L (15-37); BUN/Creatinine Ratio 16.5; Blood Urea Nitrogen 14 mg/dL (7-18); Calcium 9.2 mg/dL (8.5-10.1); Carbon Dioxide 27 mmol/L (21-32); Chloride 104 mmol/L (98-107); GFR African American 83 mL/min; GFR Non-African American 69 mL/min; Glucose 87 mg/dL (74-106); Potassium 3.6 mmol/L (3.5-5.1); Sodium 139 mmol/L (136-145)
[2019-05-16 15:26] LABS: Alkaline Phosphatase 83 U/L (45-117); Total Protein 8.4 g/dL (6.4-8.2)
[2019-05-16] MEDS ORDERED: ACETAMINOPHEN 500 MG TAB PO PRN (18:45)
[2019-05-16] MEDS ORDERED: LACTULOSE 20Gm/30ML SOLN PO PRN (18:45)
[2019-05-16] MEDS ORDERED: MORPHINE SULF INJ 2 MG/ML SYRINGE 1ML IV PRN ×2 (18:45)
[2019-05-16] MEDS ORDERED: PROMETHAZINE HCL 25 MG/ML 1ML IV PRN (18:45)
[2019-05-16] MEDS ORDERED: traMADol HCL 50 MG TAB PO PRN (18:45)
[2019-05-16] MEDS ORDERED: NITROGLYCERIN 0.4 MG SL TAB SL PRN (18:45)
[2019-05-16] MEDS ORDERED: TEMAZEPAM 15 MG CAP PO PRN (18:45)
[2019-05-16] MEDS: SODIUM CHLORIDE 0.9% 1,000 ML IV SCH (20:16)
--- NOTE | 2019-05-16 20:30 | NUR ---
Telemetry admit from [facility] admitted to Telemetry unit. Patient oriented to FRANCES SEGUNDO, RN primary RN, unit, room, bed, and unit policies regarding patient care and visiting hours. Patient now on continuous telemetry monitoring, tele box # 49 and telemetry reading on arrival to unit is sinus rhythm at 72 beats per minute. Patient weighed by bedscale and encouraged to call if they need something. All questions and concerns addressed, patient verbalized understanding. Bed in lowest locked position, side rails up x2, call light within reach. Will round every hour and as needed and continue to monitor.
--- NOTE | 2019-05-16 20:30 | NUR ---
Regarding Advanced Directive and home medications Patient reports having an advance directive, but cannot recall specifics at this time. Home medications also noted on emar, but not with patient at time of admission. Patient informed to have family bring both from home, patient verbalized understanding. Will continue care.
--- NOTE | 2019-05-16 20:50 | NUR ---
MRSA Swab Nasal MRSA swab collected and sent to lab, patient tolerated well. Will continue care.
[2019-05-16 22:00] VITALS: BP 121/77
[2019-05-16] MEDS ORDERED: PATIENTS OWN MEDICATION (Esomeprazole Magnesium Trihydr (Nexium) 40 MG) OR SCH (22:00)
[2019-05-16] MEDS: EZETIMIBE SIMVASTATIN PO SCH (23:13)
[2019-05-16] MEDS: APIXABAN 5 MG TAB PO SCH (23:13)
[2019-05-16] MEDS: METOPROLOL SUCCINATE XL 50 MG TAB PO SCH (23:14)
[2019-05-16 23:18] VITALS: BP 121/77
[2019-05-17 05:40] VITALS: BP 123/69
[2019-05-17] MEDS: LEVOTHYROXINE SODIUM 25 MCG TAB PO SCH (06:07)
--- NOTE | 2019-05-17 06:38 | NUR ---
Closing Note Patient lying in bed, awake and alert. No s/s of distress. Bed in lowest locked position, side rails up x2, call light within reach. No s/s of distress. Will continue to monitor and endorse care to dayshift RN.
[2019-05-17 07:02] LABS: Cholesterol 152 mg/dL (< 200)
[2019-05-17 07:09] LABS: HDL Cholesterol 39 mg/dL (40-59); LDL Cholesterol 106 mg/dL (< 100); Triglycerides 162 mg/dL (< 150)
--- NOTE | 2019-05-17 08:00 | NUR ---
OPENING NOTE REPORT RECEIVED FROM ELAINE. PATIENT ALERT AND ORIENTED X4, ON ROOM AIR, AND SITTING UP IN BED. SKIN IS DRY AND INTACT. DENIES PAIN OR SHORTNESS OF BREATH, RESPIRATIONS ARE EVEN AND UNLABORED. PATIENT AMBULATED TO BATHROOM. Signed: 05/17/19 at 1151 by MARE DUEÑAS SN <Co-Signature Required> Co-Signed: 05/17/19 at 1151 by MICHAEL HIDALGO RN RN
--- NOTE | 2019-05-17 08:00 | NUR ---
IV REMOVED PATIENT PULLED OUT IV WHILE TURNING. IV INTACT. PRESSURE DRESSING APPLIED, PATIENT CLEANED, AND LINENS CHANGED. Signed: 05/17/19 at 1151 by MARE DUEÑAS SN <Co-Signature Required> Co-Signed: 05/17/19 at 1151 by MICHAEL HIDALGO RN RN
--- NOTE | 2019-05-17 08:15 | NUR ---
NEW IV NEW IV 22G ON LEFT FOREARM, BLOOD RETURN NOTED, FLUSHES EASILY. CLEAR DRESSING APPLIED, DRY AND INTACT. Signed: 05/17/19 at 1150 by MARE DUEÑAS <Co-Signature Required> Co-Signed: 05/17/19 at 1150 by MICHAEL HIDALGO RN RN
[2019-05-17] MEDS: SODIUM CHLORIDE 0.9% 1,000 ML IV SCH ×2 (08:29→21:18)
[2019-05-17 08:35] VITALS: BP 134/92
[2019-05-17] MEDS: ASPirin 81 mg TAB PO SCH (10:00)
--- NOTE | 2019-05-17 10:14 | NUR ---
Dr. Kumar at bedside Discussing plan of care with patient, new order received to place GI consult with Dr. Ortega for esophageal stricture. Will place consult as ordered.
[2019-05-17] MEDS: APIXABAN 5 MG TAB PO SCH ×2 (10:17→22:00)
[2019-05-17] MEDS: POTASSIUM CHL 10 Meq TABLET PO SCH (10:17)
[2019-05-17] MEDS: HCTZ 25 MG TAB PO SCH (10:17)
[2019-05-17] MEDS: PANTOPRAZOLE 40 MG TAB PO SCH (10:19)
--- NOTE | 2019-05-17 11:12 | NUR ---
Dr. Ortega at bedside
[2019-05-17 13:00] VITALS: BP 111/71
--- NOTE | 2019-05-17 14:35 | NUR ---
PATIENT ROUNDS PATIENT AOX4, LAYING IN BED WITH HOB >30, ON ROOM AIR, RESPIRATIONS UNLABORED AND EVEN. NO SIGNS OF DISTRESS AT THIS TIME. PATIENT'S AT BEDSIDE. BED IN LOWEST POSITION, BRAKES LOCKED, AND CALL LIGHT WITHIN REACH. Signed: 05/17/19 at 1445 by MARE DUEÑAS SN <Co-Signature Required> Co-Signed: 05/17/19 at 1445 by MICHAEL HIDALGO RN RN
--- NOTE | 2019-05-17 16:20 | NUR ---
Dr. Hernandez at bedside Discussing plan of care with patient and patient . No new orders received. Will continue to monitor Q1 hour and PRN.
[2019-05-17 17:00] VITALS: BP 113/56
--- NOTE | 2019-05-17 19:28 | NUR ---
Closing Note Report given to sales and merchandising representative RN. No signs or symptoms of distress noted at this time.
--- NOTE | 2019-05-17 19:35 | NUR ---
Opening Shift Note Assumed care of patient, awake and alert. No S/S of distress/SOB or pain. Bed in lowest locked position, side rails up x2, call light within reach. Instructed on POC and to call for assist PRN, will continue to monitor for changes Q1hr and PRN.
[2019-05-17 22:00] VITALS: BP 130/75
[2019-05-17] MEDS: EZETIMIBE SIMVASTATIN PO SCH (22:00)
[2019-05-17] MEDS: METOPROLOL SUCCINATE XL 50 MG TAB PO SCH (22:17)
[2019-05-18 05:51] VITALS: BP 98/59
[2019-05-18] MEDS: LEVOTHYROXINE SODIUM 25 MCG TAB PO SCH (06:08)
--- NOTE | 2019-05-18 07:15 | NUR ---
Closing Note Patient lying in bed, awake and alert. No s/s of distress. Bed in lowest locked position, side rails up x2, call light within reach. No s/s of distress. Care endorsed to dayshift RN.
--- NOTE | 2019-05-18 07:25 | NUR ---
Opening Note Received report from microfilm camera operator RN. Patient is awake, alert and oriented x4, sitting up in bed. No signs or symptoms of distress noted at this time. Patient denies pain at this time. Patient is on room air, respirations even and unlabored. Reviewed plan of care with patient, patient verbalized understanding. Bed in low and locked position, call light within reach. Will continue to monitor Q1 hour and PRN.
[2019-05-18 09:00] VITALS: BP_SYST 146; BP_DIAS 79; BP_DIAS 83
--- NOTE | 2019-05-18 09:42 | NUR ---
Dr. Kumar at bedside Discussing plan of care with patient, patient to be discharged today and follow up out patient with Dr. Ortega. Will continue to monitor Q1 hour and PRN.
[2019-05-18] MEDS: ASPirin 81 mg TAB PO SCH (10:00)
[2019-05-18] MEDS: APIXABAN 5 MG TAB PO SCH (10:00)
[2019-05-18] MEDS: HCTZ 25 MG TAB PO SCH (10:16)
[2019-05-18] MEDS: PANTOPRAZOLE 40 MG TAB PO SCH (10:17)
[2019-05-18] MEDS: POTASSIUM CHL 10 Meq TABLET PO SCH (10:17)
[2019-05-18] MEDS: SODIUM CHLORIDE 0.9% 1,000 ML IV SCH (10:38)
[2019-05-18 10:58] VITALS: BP 146/79
--- NOTE | 2019-05-18 11:29 | NUR ---
Discharge Discharge instructions given as ordered. Encourage to follow up with primary care physician as instructed, and to follow up with DR. Ortega for GI. All questions and concerns addressed. Patient verbalized understanding. Medication reconciliation form completed and copy given to patient. IV catheter removed, catheter intact and pressure dressing applied. cardiac monitor removed and sent back to ICU. New prescription given to patient. Patient refused wheelchair, patient ambulated down stairs to private vehicle with all personal belongings, accompanied by family member. No signs or symptoms of distress noted at this time.
== END 2019-05-18 11:29 | disposition home or self-care (01) | DRG 392 ==
LOC: EDBD 13:54 → ER 13:55 → TELE 13:56 → TELE-WESTW 20:33
PROVIDERS: ADMIT Internal Medicine; ATTEND Internal Medicine
DX: K22.4 Dyskinesia of esophagus (principal); E03.9 Hypothyroidism, unspecified; I10 Essential (primary) hypertension; I25.2 Old myocardial infarction; I48.91 Unspecified atrial fibrillation; K21.9 Gastro-esophageal reflux disease without esophagitis; Z79.01 Long term (current) use of anticoagulants; Z82.49 Family history of ischemic heart disease and other diseases of the circulatory system; Z83.3 Family history of diabetes mellitus; Z90.710 Acquired absence of both cervix and uterus; Z79.82 Long term (current) use of aspirin
CPT/HCPCS: 36415; 71045; 80053; 80061; 82550; 83735; 83880; 84443; 84484; 85025; 85379; 85610; 85652; 85730; 86141; 87081; 93005; G0378

== ENCOUNTER → 2019-05-23 | Day surgery (SDC) | payer MEDICARE, OTHER ==
[~2019-05-23] VITALS: Ht 152.4 cm; Wt 71.7 kg
[~2019-05-23] MED LIST changes: +LIDOCAINE VISCOUS 2% 15ML UD ONE; +MIDAZOLAM HCL 5 MG/ML-1ML VIAL ONE; +SODIUM CHLORIDE LOCK 10 ML ONE; +diphenhdrAMINE HCL 50 MG/1 ML VL ONE; +fentaNYL CITRATE 100 MCG/2 ML VL ONE
[2019-05-23 11:52] VITALS: BP 120/65
== END | disposition home or self-care (01) ==
LOC: GI 09:09
PROVIDERS: ATTEND Internal Medicine Gastroenterology
DX: K22.8 Other specified diseases of esophagus (principal); I48.91 Unspecified atrial fibrillation; Z79.02 Long term (current) use of antithrombotics/antiplatelets; Z79.899 Other long term (current) drug therapy; Z96.651 Presence of right artificial knee joint; Z90.710 Acquired absence of both cervix and uterus; Z95.818 Presence of other cardiac implants and grafts
CPT/HCPCS: 43235; 43450; J2250; J3010; J7030

== ENCOUNTER → 2019-12-30 | Outpatient (CLI) | payer MEDICARE, OTHER ==
[~2019-12-30] MED LIST changes: -LIDOCAINE VISCOUS 2% 15ML UD ONE; -METO25TA62 OR; +METO25TA93 OR; -MIDAZOLAM HCL 5 MG/ML-1ML VIAL ONE; -SODIUM CHLORIDE LOCK 10 ML ONE; -diphenhdrAMINE HCL 50 MG/1 ML VL ONE; -fentaNYL CITRATE 100 MCG/2 ML VL ONE
== END | disposition home or self-care (01) ==
LOC: LAB 15:00
PROVIDERS: ATTEND Physician Assistant
DX: L57.0 Actinic keratosis (principal); C44.521 Squamous cell carcinoma of skin of breast

== ENCOUNTER → 2020-03-22 | Outpatient (CLI) | payer MEDICARE, OTHER ==
[2020-03-22 11:30] LABS: Basophils # (auto) 0.1 10 ^3/uL (0-0.2); Basophils % (auto) 1.1 % (0.0-2.0); Eosinophils # (auto) 0.3 10 ^3/uL (0-0.8); Eosinophils % (auto) 4.8 % (0.0-7.0); Hematocrit 42.2 % (36.0-46.0); Hemoglobin 14.6 g/dL (12.2-16.2); Lymphocytes # (auto) 1.7 10 ^3/uL (0.4-5.4); Lymphocytes % (auto) 31.1 % (10.0-50.0); Mean Corpuscular Hgb Conc. 34.7 g/dL (32.0-36.0); Mean Corpuscular Volume 92.2 fL (80.0-100.0); Monocytes # (auto) 0.5 10 ^3/uL (0-1.3); Monocytes % (auto) 8.4 % (0.0-12.0); Neutrophils % (auto) 54.6 % (37.0-80.0); Nucleated Red Blood Cells % 0.1 %; Platelet Count (auto) 225 10^3/uL (140-450); Red Blood Cells 4.57 10^6/uL (4.0-5.20); White Blood Cell 5.5 10^3/uL (4.4-10.8)
[2020-03-22 12:03] LABS: Albumin 3.9 g/dL (3.4-5.0); Calcium 9.5 mg/dL (8.5-10.1); Potassium 3.7 mmol/L (3.5-5.1)
[2020-03-22 12:09] LABS: BUN/Creatinine Ratio 19.5
== END | disposition home or self-care (01) ==
LOC: LAB 10:55
PROVIDERS: ATTEND Internal Medicine
DX: I48.0 Paroxysmal atrial fibrillation (principal); I10 Essential (primary) hypertension; E84.9 Cystic fibrosis, unspecified; E03.9 Hypothyroidism, unspecified
CPT/HCPCS: 36415; 80053; 80061; 84443; 85025

== ENCOUNTER → 2020-09-14 | Outpatient (CLI) | payer MEDICARE, OTHER | END | disposition home or self-care (01) | LOC: XYW 08:10 | PROVIDERS: ATTEND Internal Medicine | DX: I08.3 Combined rheumatic disorders of mitral, aortic and tricuspid valves (principal); I10 Essential (primary) hypertension | CPT/HCPCS: 93306 ==

== ENCOUNTER → 2020-09-16 | Outpatient (CLI) | payer MEDICARE, OTHER ==
[~2020-09-16] VITALS: Ht 152.4 cm; Wt 71.2 kg
[~2020-09-16] MED LIST changes: +ADENOSINE 60 MG in GIVE UN-DILUTED 0 ML IV STA
== END | disposition home or self-care (01) ==
LOC: XY 07:40
PROVIDERS: ATTEND Internal Medicine
DX: I65.23 Occlusion and stenosis of bilateral carotid arteries (principal); I10 Essential (primary) hypertension
CPT/HCPCS: 78452; 93017; 93886; A9500; J0153

== ENCOUNTER → 2020-10-07 | Day surgery (SDC) | payer MEDICARE, OTHER ==
[2020-10-06 12:25] LABS: Basophils # (auto) 0.1 10 ^3/uL (0-0.2); Eosinophils # (auto) 0.2 10 ^3/uL (0-0.8); Eosinophils % (auto) 3.5 % (0.0-7.0); Hematocrit 41.3 % (36.0-46.0); Hemoglobin 14.4 g/dL (12.2-16.2); Lymphocytes # (auto) 1.2 10 ^3/uL (0.4-5.4); Lymphocytes % (auto) 21.3 % (10.0-50.0); Mean Corpuscular Hemoglobin 32.7 pg (28.0-32.0); Mean Corpuscular Hgb Conc. 34.8 g/dL (32.0-36.0); Monocytes # (auto) 0.4 10 ^3/uL (0-1.3); Monocytes % (auto) 7.3 % (0.0-12.0); Neutrophils # (auto) 3.8 10 ^3/uL (1.6-8.6); Neutrophils % (auto) 66.9 % (37.0-80.0); Platelet Count (auto) 245 10^3/uL (140-450); Red Blood Cells 4.39 10^6/uL (4.0-5.20); Red Cell Distribution Width 13.1 % (11.8-14.3); White Blood Cell 5.7 10^3/uL (4.4-10.8)
[2020-10-06 12:36] LABS: INR 0.99 (0.9-1.15); Partial Thromboplastin Time 24.7 sec (23.0-31.2)
[~2020-10-07] VITALS: Ht 152.4 cm; Wt 74.8 kg
[~2020-10-07] MED LIST changes: -ADENOSINE 60 MG in GIVE UN-DILUTED 0 ML IV STA; +AMIO200T4 PO; +CHOL1CAP PO; -ESOM40CA39 OR; +GLUC1TAB22 PO; +LIDOCAINE VISCOUS 2% 15ML UD ONE; +LOSA-69 PO; +OMEG120015 PO; +PANT40TA2 PO; +SODIUM CHLORIDE LOCK 10 ML ONE; +ZINC50TA7 PO; +diphenhdrAMINE HCL 50 MG/1 ML VL ONE
[2020-10-07] MEDS: fentaNYL CITRATE 100 MCG/2 ML VL ONE ×2 (09:47→09:51)
[2020-10-07] MEDS: MIDAZOLAM HCL 5 MG/ML-1ML VIAL ONE ×2 (09:47→09:51)
[2020-10-07 10:40] VITALS: BP 116/61
== END | disposition home or self-care (01) ==
LOC: GI 09:12
PROVIDERS: ATTEND Internal Medicine Gastroenterology
DX: R13.10 Dysphagia, unspecified (principal); K21.9 Gastro-esophageal reflux disease without esophagitis; K29.70 Gastritis, unspecified, without bleeding; K31.89 Other diseases of stomach and duodenum; I48.91 Unspecified atrial fibrillation; I49.9 Cardiac arrhythmia, unspecified; H26.8 Other specified cataract; E66.9 Obesity, unspecified; Z68.32 Body mass index [BMI] 32.0-32.9, adult; Z20.822 Contact with and (suspected) exposure to COVID-19; Z98.890 Other specified postprocedural states; Z79.899 Other long term (current) drug therapy; Z86.16 Personal history of COVID-19; Z90.710 Acquired absence of both cervix and uterus; Z90.10 Acquired absence of unspecified breast and nipple; Z96.651 Presence of right artificial knee joint; Z95.5 Presence of coronary angioplasty implant and graft
CPT/HCPCS: 36415; 43239; 43450; 85025; 85610; 85730; J2250; J3010; J7030; U0003

== ENCOUNTER 2020-12-22 17:56 | Emergency (ER) | payer MEDICARE, OTHER ==
[~2020-12-22] VITALS: Ht 157.5 cm; Wt 70.3 kg
[~2020-12-22 17:56] MED LIST changes: -LIDOCAINE VISCOUS 2% 15ML UD ONE; -SODIUM CHLORIDE LOCK 10 ML ONE; -diphenhdrAMINE HCL 50 MG/1 ML VL ONE
[2020-12-23 00:12] VITALS: BP 121/65
[2020-12-23] MEDS ORDERED: TETANUS-DIPTH-ACEL PERTUSSIS 0.5ML SYR Tdap IM ONE (00:30)
[2020-12-23] MEDS ORDERED: ACETAMINOPHEN 500 MG TAB PO ONE (00:56)
[2020-12-23] MEDS ORDERED: ACETAMINOPHEN 325 MG TAB PO ONE (01:00)
== END 2020-12-23 01:44 | disposition home or self-care (01) ==
LOC: ER 17:56
DX: S51.011A Laceration without foreign body of right elbow, initial encounter (principal); S09.90XA Unspecified injury of head, initial encounter; M25.511 Pain in right shoulder; K21.9 Gastro-esophageal reflux disease without esophagitis; I10 Essential (primary) hypertension; I25.2 Old myocardial infarction; Z79.899 Other long term (current) drug therapy; W18.09XA Striking against other object with subsequent fall, initial encounter; Y93.89 Activity, other specified; Y92.89 Other specified places as the place of occurrence of the external cause; Y99.8 Other external cause status
CPT/HCPCS: 70450; 72125; 73030; 73080; 90471; 90715

== ENCOUNTER → 2021-06-02 | Day surgery (SDC) | payer MEDICARE, OTHER ==
[2021-05-31 11:47] LABS: Basophils # (auto) 0.1 10 ^3/uL (0-0.2); Basophils % (auto) 0.9 % (0.0-2.0); Eosinophils # (auto) 0.1 10 ^3/uL (0-0.8); Eosinophils % (auto) 1.5 % (0.0-7.0); Hematocrit 38.7 % (36.0-46.0); Hemoglobin 13.9 g/dL (12.2-16.2); Lymphocytes # (auto) 1.1 10 ^3/uL (0.4-5.4); Lymphocytes % (auto) 14.8 % (10.0-50.0); Mean Corpuscular Hemoglobin 33.5 pg (28.0-32.0); Mean Corpuscular Hgb Conc. 35.9 g/dL (32.0-36.0); Mean Corpuscular Volume 93.4 fL (80.0-100.0); Monocytes # (auto) 0.6 10 ^3/uL (0-1.3); Monocytes % (auto) 8.5 % (0.0-12.0); Neutrophils # (auto) 5.3 10 ^3/uL (1.6-8.6); Neutrophils % (auto) 74.3 % (37.0-80.0); Red Blood Cells 4.15 10^6/uL (4.0-5.20); Red Cell Distribution Width 13.3 % (11.8-14.3); White Blood Cell 7.1 10^3/uL (4.4-10.8)
[2021-05-31 12:36] LABS: Albumin 3.5 g/dL (3.4-5.0); Calcium 8.8 mg/dL (8.5-10.1); Potassium 3.6 mmol/L (3.5-5.1)
[2021-05-31 12:40] LABS: BUN/Creatinine Ratio 14.4; Bilirubin, Total 0.8 mg/dL (0.2-1.0); Total Protein 7.5 g/dL (6.4-8.2)
[2021-05-31 12:46] LABS: INR 1.04 (0.9-1.15); Partial Thromboplastin Time 26.8 sec (23.6-33.0)
[~2021-06-02] VITALS: Ht 152.4 cm; Wt 74.8 kg
[~2021-06-02] MED LIST changes: +IRBE300T43 PO; -LOSA-69 PO; +MIDAZOLAM HCL 5 MG/ML-1ML VIAL IV ONE; +fentaNYL CITRATE 100 MCG/2 ML VL IV ONE
[2021-06-02 10:30] VITALS: BP 135/58
== END | disposition home or self-care (01) ==
LOC: GI 08:41
PROVIDERS: ATTEND Internal Medicine Gastroenterology
DX: R13.10 Dysphagia, unspecified (principal); K21.9 Gastro-esophageal reflux disease without esophagitis; K22.2 Esophageal obstruction; K29.50 Unspecified chronic gastritis without bleeding; I10 Essential (primary) hypertension; I48.91 Unspecified atrial fibrillation; E03.9 Hypothyroidism, unspecified; E78.5 Hyperlipidemia, unspecified; Z90.710 Acquired absence of both cervix and uterus; Z79.02 Long term (current) use of antithrombotics/antiplatelets; Z20.822 Contact with and (suspected) exposure to COVID-19; Z98.890 Other specified postprocedural states; Z79.899 Other long term (current) drug therapy
CPT/HCPCS: 36415; 43239; 43248; 80053; 85025; 85610; 85730; 88305; 88342; J2250; J3010; J7030; U0003

== ENCOUNTER 2021-10-31 06:05 | Inpatient (IN) | payer MEDICARE, OTHER ==
[2021-10-27 16:14] LABS: Basophils # (auto) 0.1 10 ^3/uL (0-0.2); Eosinophils # (auto) 0.1 10 ^3/uL (0-0.8); Eosinophils % (auto) 0.8 % (0.0-7.0); Hematocrit 38.3 % (36.0-46.0); Hemoglobin 13.4 g/dL (12.2-16.2); Lymphocytes # (auto) 1.2 10 ^3/uL (0.4-5.4); Lymphocytes % (auto) 15.5 % (10.0-50.0); Mean Corpuscular Hemoglobin 32.7 pg (28.0-32.0); Mean Corpuscular Hgb Conc. 34.9 g/dL (32.0-36.0); Mean Corpuscular Volume 93.8 fL (80.0-100.0); Monocytes # (auto) 0.6 10 ^3/uL (0-1.3); Monocytes % (auto) 8.5 % (0.0-12.0); Neutrophils # (auto) 5.5 10 ^3/uL (1.6-8.6); Neutrophils % (auto) 74.2 % (37.0-80.0); Red Blood Cells 4.09 10^6/uL (4.0-5.20); Red Cell Distribution Width 14.8 % (11.8-14.3); White Blood Cell 7.4 10^3/uL (4.4-10.8)
[2021-10-27 16:21] LABS: Urine Bacteria NONE SEEN /hpf (None Seen); Urine Blood Negative /uL (Negative); Urine Specific Gravity 1.011 (1.001-1.035); Urine WBC 28 /hpf (0 - 5)
[2021-10-27 16:33] LABS: Albumin 3.4 g/dL (3.4-5.0); INR 1.05 (0.9-1.15); Partial Thromboplastin Time 26.3 sec (23.6-33.0); Potassium 3.6 mmol/L (3.5-5.1)
[2021-10-27 16:38] LABS: BUN/Creatinine Ratio 14.1; Bilirubin, Total 0.9 mg/dL (0.2-1.0); Total Protein 7.9 g/dL (6.4-8.2)
[~2021-10-31] VITALS: Ht 152.4 cm; Wt 84.5 kg
[2021-10-31] VITALS (17 sets, daily range): BP systolic 107–128; BP diastolic 58–89
[~2021-10-31 06:05] MED LIST changes: +AML5T PO; -MIDAZOLAM HCL 5 MG/ML-1ML VIAL IV ONE; -fentaNYL CITRATE 100 MCG/2 ML VL IV ONE
[2021-10-31] MEDS ORDERED: TRANEXAMIC ACID 20 ML ONE (06:50)
[2021-10-31] MEDS: CELECOXIB 100 MG CAP PO ONE ×2 (06:50→09:00)
[2021-10-31] MEDS: PREGABALIN CAPSULE 75 MG CAP PO ONE ×2 (06:50→10:00)
[2021-10-31] MEDS: ACETAMINOPHEN IV 1000 MG/100ML (10MG/ML) IV ONE ×2 (06:50→09:00)
[2021-10-31] MEDS ORDERED: BUPIVACAINE W/ EPINEPH 0.25% INJ 50ML MDV ONE (06:51)
[2021-10-31] MEDS ORDERED: VANCOMYCIN HCL 1000 MG VL ONE (06:53)
[2021-10-31] MEDS: KETOROLAC TROMETH 30 MG/ML 1ML VIAL ONE ×2 (06:53→08:09)
[2021-10-31] MEDS ORDERED: CELECOXIB 100 MG CAP ONE (06:55)
[2021-10-31] MEDS ORDERED: ceFAZolin 1GM/50ML 100 ML IV ONE (06:56)
[2021-10-31] MEDS ORDERED: ACETAMINOPHEN IV 100 ML IV ONE (06:56)
[2021-10-31] MEDS ORDERED: PREGABALIN CAPSULE 75 MG CAP ONE (06:56)
[2021-10-31] MEDS ORDERED: MORPHINE SULF PF 5 MG/10 ML VIAL ONE ×2 (07:07→07:30)
[2021-10-31] MEDS ORDERED: BUPIVACAINE HCL 50 ML ONE (07:27)
[2021-10-31] MEDS ORDERED: LIDOCAINE W/ EPINEPHRINE 1% 20ML VIAL ONE (07:27)
[2021-10-31] MEDS ORDERED: MIDAZOLAM HCL 2MG/2ML 2ml VIAL (1mg/ml) ONE (07:30)
[2021-10-31] MEDS ORDERED: fentaNYL CITRATE 100 MCG/2 ML VL ONE (07:30)
[2021-10-31] MEDS ORDERED: GLYCOPYRROLATE 0.2 MG/ML 1ML VIAL ONE (07:31)
[2021-10-31] MEDS ORDERED: ePHEDrine SULFATE 50 MG/ML AMP ONE (07:31)
[2021-10-31] MEDS ORDERED: BUPIVACAINE/DEXTROSE MPF 0.75% 2 ML AMP IT ONE (07:31)
[2021-10-31] MEDS ORDERED: PROPOFOL 10 MG/ML 20 ML IV ONE (07:31)
[2021-10-31] MEDS ORDERED: ONDANSETRON HCL 4 MG/2 ML VIAL ONE (07:31)
[2021-10-31] MEDS ORDERED: PHENYLEPHRINE HCL 10 MG/ML VL ONE (07:31)
[2021-10-31] MEDS ORDERED: KETAMINE HCL 10 ML ONE (07:37)
[2021-10-31] MEDS ORDERED: ACETAMINOPHEN 325 MG TAB PO PRN (09:15)
[2021-10-31] MEDS ORDERED: LACTATED RINGER'S 1,000 ML IV SCH (09:15)
[2021-10-31] MEDS ORDERED: HYDROmorphone HCL 2 MG/ML VL/or syr IV PRN ×2 (09:15→12:30)
[2021-10-31] MEDS ORDERED: NITROGLYCERIN 0.4 MG SL TAB SL PRN (09:15)
[2021-10-31] MEDS: ceFAZolin 1GM/50ML 50 ML IV SCH ×3 (09:15→21:43)
[2021-10-31] MEDS ORDERED: BISACODYL 5 MG EC TAB PO PRN (09:15)
[2021-10-31] MEDS ORDERED: MORPHINE SULFATE INJECTION 2 MG/ML SYRG IV PRN (09:15)
[2021-10-31] MEDS ORDERED: ONDANSETRON HCL 4 MG/2 ML VIAL IV PRN ×3 (09:15→09:55)
[2021-10-31] MEDS ORDERED: NALOXONE HCL 0.4 MG/ML VIAL IV PRN (09:50)
[2021-10-31] MEDS ORDERED: diphenhdrAMINE HCL 50 MG/1 ML VL IV PRN (09:55)
[2021-10-31] MEDS ORDERED: DexAMETHasone SOD PHOS 10MG/1ML VIAL INJ IV PRN (09:55)
[2021-10-31] MEDS: amLODIPine BESYLATE 5 MG TAB PO SCH ×2 (10:00→16:08)
[2021-10-31] MEDS ORDERED: METOPROLOL SUCCINATE XL 50 MG TAB PO SCH (10:00)
[2021-10-31] MEDS ORDERED: FISH OIL 1200 MG CAPSULE PO SCH (10:00)
[2021-10-31] MEDS ORDERED: GLUCOSAMINE HYDROCHLORIDE PO SCH (10:00)
[2021-10-31] MEDS: POTASSIUM CHL 10 Meq TABLET PO SCH (10:00)
[2021-10-31] MEDS ORDERED: ZINC GLUCONATE 50 MG TABLET PO SCH (10:00)
[2021-10-31] MEDS: PANTOPRAZOLE 40 MG TAB PO SCH ×2 (10:00→16:07)
[2021-10-31] MEDS: AMIODARONE HCL 200 MG TAB PO SCH ×3 (10:00→22:04)
[2021-10-31] MEDS: APIXABAN 5 MG TAB PO SCH ×3 (10:00→22:04)
[2021-10-31] MEDS: DOCUSATE SOD 100 MG CAP PO SCH ×2 (10:00→22:05)
[2021-10-31] MEDS ORDERED: HCTZ 25 MG TAB PO SCH (10:00)
[2021-10-31] MEDS: CHOLECALCIFEROL (VITD3) 1,000UNIT=25mCg TAB PO SCH ×2 (10:00→16:07)
[2021-10-31] MEDS: SODIUM CHLOR 0.9% PF (SALINE LOCK) 10ML VIAL/SYR IV SCH ×2 (10:58→22:05)
[2021-10-31] MEDS: LACTATED RINGER'S 1,000 ML IV SCH (12:30)
[2021-10-31] MEDS ORDERED: EZETIMIBE SIMVASTATIN PO SCH (22:00)
[2021-11-01] VITALS (14 sets, daily range): BP systolic 103–144; BP diastolic 50–74
[2021-11-01] MEDS: LACTATED RINGER'S 1,000 ML IV SCH (01:50)
[2021-11-01] MEDS: SODIUM CHLOR 0.9% PF (SALINE LOCK) 10ML VIAL/SYR IV SCH ×3 (05:50→21:59)
[2021-11-01] MEDS: LEVOTHYROXINE SODIUM 50 MCG TAB PO SCH (06:39)
[2021-11-01 07:05] LABS: Albumin 2.5 g/dL (3.4-5.0); BUN/Creatinine Ratio 15.7; Bilirubin, Total 0.8 mg/dL (0.2-1.0); Calcium 8.3 mg/dL (8.5-10.1); Total Protein 6.2 g/dL (6.4-8.2)
[2021-11-01 07:10] LABS: Basophils # (auto) 0 10 ^3/uL (0-0.2); Basophils % (auto) 0.5 % (0.0-2.0); Eosinophils # (auto) 0 10 ^3/uL (0-0.8); Eosinophils % (auto) 0.3 % (0.0-7.0); Hemoglobin 11.1 g/dL (12.2-16.2); Lymphocytes # (auto) 0.7 10 ^3/uL (0.4-5.4); Lymphocytes % (auto) 8.6 % (10.0-50.0); Mean Corpuscular Hemoglobin 33.5 pg (28.0-32.0); Mean Corpuscular Hgb Conc. 34.8 g/dL (32.0-36.0); Mean Corpuscular Volume 96.3 fL (80.0-100.0); Monocytes # (auto) 0.8 10 ^3/uL (0-1.3); Monocytes % (auto) 10.5 % (0.0-12.0); Neutrophils # (auto) 6.4 10 ^3/uL (1.6-8.6); Neutrophils % (auto) 80.1 % (37.0-80.0); Red Blood Cells 3.32 10^6/uL (4.0-5.20); Red Cell Distribution Width 14.2 % (11.8-14.3)
[2021-11-01] MEDS ORDERED: LOSARTAN POTASSIUM 50 MG TAB PO SCH (10:00)
[2021-11-01] MEDS: AMIODARONE HCL 200 MG TAB PO SCH ×2 (10:09→22:00)
[2021-11-01] MEDS: DOCUSATE SOD 100 MG CAP PO SCH ×2 (10:09→21:59)
[2021-11-01] MEDS: POTASSIUM CHL 10 Meq TABLET PO SCH (10:10)
[2021-11-01] MEDS: APIXABAN 5 MG TAB PO SCH ×2 (10:10→22:00)
[2021-11-01] MEDS: amLODIPine BESYLATE 5 MG TAB PO SCH (10:10)
[2021-11-01] MEDS: CHOLECALCIFEROL (VITD3) 1,000UNIT=25mCg TAB PO SCH (10:11)
[2021-11-01] MEDS: HYDROcodone-ACET 5/325MG TAB PO PRN ×3 (10:11→22:12)
[2021-11-01] MEDS: PANTOPRAZOLE 40 MG TAB PO SCH (10:11)
[2021-11-01] MEDS ORDERED: FUROSEMIDE 20 MG/2 ML VIAL IV ONE (12:00)
[2021-11-01] MEDS ORDERED: POTASSIUM CHL 20 Meq TABLET PO ONE (12:00)
[2021-11-02] MEDS: HYDROmorphone HCL 2 MG/ML VL/or syr IV PRN ×2 (00:31→22:14)
[2021-11-02 04:37] VITALS: BP 139/65
[2021-11-02] MEDS: SODIUM CHLOR 0.9% PF (SALINE LOCK) 10ML VIAL/SYR IV SCH ×3 (05:53→22:12)
[2021-11-02 06:36] LABS: Basophils # (auto) 0 10 ^3/uL (0-0.2); Basophils % (auto) 0.4 % (0.0-2.0); Eosinophils # (auto) 0.1 10 ^3/uL (0-0.8); Eosinophils % (auto) 1.2 % (0.0-7.0); Hematocrit 29.6 % (36.0-46.0); Hemoglobin 10.6 g/dL (12.2-16.2); Lymphocytes # (auto) 0.9 10 ^3/uL (0.4-5.4); Lymphocytes % (auto) 10.5 % (10.0-50.0); Mean Corpuscular Hemoglobin 33.8 pg (28.0-32.0); Mean Corpuscular Hgb Conc. 35.8 g/dL (32.0-36.0); Mean Corpuscular Volume 94.4 fL (80.0-100.0); Monocytes % (auto) 11.7 % (0.0-12.0); Neutrophils # (auto) 6.2 10 ^3/uL (1.6-8.6); Neutrophils % (auto) 76.2 % (37.0-80.0); Red Blood Cells 3.13 10^6/uL (4.0-5.20); Red Cell Distribution Width 14.3 % (11.8-14.3); White Blood Cell 8.2 10^3/uL (4.4-10.8)
[2021-11-02] MEDS: LEVOTHYROXINE SODIUM 50 MCG TAB PO SCH (06:42)
[2021-11-02 06:54] LABS: BUN/Creatinine Ratio 16.2; Calcium 8.4 mg/dL (8.5-10.1); Potassium 3.3 mmol/L (3.5-5.1)
[2021-11-02 09:00] VITALS: BP 134/65
[2021-11-02] MEDS: POTASSIUM CHL 10 Meq TABLET PO SCH (09:38)
[2021-11-02] MEDS: APIXABAN 5 MG TAB PO SCH ×2 (09:38→22:03)
[2021-11-02] MEDS: AMIODARONE HCL 200 MG TAB PO SCH ×2 (09:38→22:12)
[2021-11-02] MEDS: DOCUSATE SOD 100 MG CAP PO SCH ×2 (09:38→22:03)
[2021-11-02] MEDS: PANTOPRAZOLE 40 MG TAB PO SCH (09:39)
[2021-11-02] MEDS: CHOLECALCIFEROL (VITD3) 1,000UNIT=25mCg TAB PO SCH (09:39)
[2021-11-02] MEDS: HYDROcodone-ACET 5/325MG TAB PO PRN (10:13)
[2021-11-02] MEDS ORDERED: POTASSIUM CHL 10 Meq TABLET PO ONE (10:45)
[2021-11-02 12:29] VITALS: BP 134/43
[2021-11-02 17:29] VITALS: BP 131/55
[2021-11-02 22:56] VITALS: BP 159/78
[2021-11-03] MEDS: HYDROmorphone HCL 2 MG/ML VL/or syr IV PRN (04:21)
[2021-11-03 05:30] LABS: Hematocrit 28.1 % (36.0-46.0)
[2021-11-03 05:35] VITALS: BP 129/56
[2021-11-03] MEDS: SODIUM CHLOR 0.9% PF (SALINE LOCK) 10ML VIAL/SYR IV SCH (05:39)
[2021-11-03] MEDS: LEVOTHYROXINE SODIUM 50 MCG TAB PO SCH (06:36)
[2021-11-03 08:42] VITALS: BP 143/79
[2021-11-03 08:51] VITALS: BP 127/89
[2021-11-03] MEDS: DOCUSATE SOD 100 MG CAP PO SCH (09:48)
[2021-11-03] MEDS: AMIODARONE HCL 200 MG TAB PO SCH (09:48)
[2021-11-03] MEDS: PANTOPRAZOLE 40 MG TAB PO SCH (09:49)
[2021-11-03] MEDS: POTASSIUM CHL 10 Meq TABLET PO SCH (09:49)
[2021-11-03] MEDS: APIXABAN 5 MG TAB PO SCH (09:49)
[2021-11-03] MEDS: CHOLECALCIFEROL (VITD3) 1,000UNIT=25mCg TAB PO SCH (09:49)
== END 2021-11-03 10:30 | disposition home health service (06) | DRG 469 ==
LOC: SUR 06:05 → TELE-EAST 09:13
PROVIDERS: ADMIT Orthopaedic Surgery Adult Reconstructive Orthopaedic Surgery; ATTEND Internal Medicine
PROC: 0SRD0J9 Replacement of Left Knee Joint with Synthetic Substitute, Cemented, Open Approach (ICD-10-PCS; principal; 2021-10-31 07:33)
DX: M17.12 Unilateral primary osteoarthritis, left knee (principal); I50.31 Acute diastolic (congestive) heart failure; N39.0 Urinary tract infection, site not specified; D68.69 Other thrombophilia; I10 Essential (primary) hypertension; E03.9 Hypothyroidism, unspecified; E78.5 Hyperlipidemia, unspecified; Z96.652 Presence of left artificial knee joint; I48.91 Unspecified atrial fibrillation; Z20.822 Contact with and (suspected) exposure to COVID-19; E87.6 Hypokalemia
CPT/HCPCS: 36415; 71045; 73562; 80048; 80053; 81001; 84443; 85014; 85018; 85025; 85610; 85730; 86850; 86900; 86901; 97110; 97116; 97163; 97530; C1713; G0378; J0131; J0690; J1885; J2250; J2405; J2704; J3490

== ENCOUNTER → 2022-04-24 | Outpatient (CLI) | payer MEDICARE, OTHER | END | disposition home or self-care (01) | LOC: XYW 10:07 | PROVIDERS: ATTEND Internal Medicine | DX: I08.3 Combined rheumatic disorders of mitral, aortic and tricuspid valves (principal); I48.0 Paroxysmal atrial fibrillation | CPT/HCPCS: 93306 ==

== ENCOUNTER → 2022-05-18 | Outpatient (CLI) | payer MEDICARE, OTHER ==
[2022-05-18 11:17] LABS: Alanine Aminotransferase 143 U/L (13-56); Aspartate Aminotransferase 106 U/L (15-37)
[2022-05-18 11:18] LABS: % Iron Saturation 17.5 % (15-50); Hepatitis B Surface Antibody Negative (Negative)
[2022-05-18 12:04] LABS: Hepatitis B Core IgM Negative; Hepatitis C Antibody Negative (Negative)
== END | disposition home or self-care (01) ==
LOC: LAB 09:51
PROVIDERS: ATTEND Internal Medicine
DX: R79.89 Other specified abnormal findings of blood chemistry (principal); E03.9 Hypothyroidism, unspecified
CPT/HCPCS: 36415; 83540; 83550; 84439; 84443; 84450; 84460; 86038; 86704; 86705; 86706; 86803; 87340

== ENCOUNTER → 2022-06-06 | Outpatient (CLI) | payer MEDICARE, OTHER ==
[~2022-06-06] VITALS: Ht 152.4 cm; Wt 64.9 kg
[~2022-06-06] MED LIST changes: +ADENOSINE 54 MG in GIVE UN-DILUTED 0 ML IV STA
[2022-06-06 08:57] VITALS: BP 171/74
== END | disposition home or self-care (01) ==
LOC: XYW 08:23
PROVIDERS: ATTEND Internal Medicine
DX: I05.0 Rheumatic mitral stenosis (principal); I48.0 Paroxysmal atrial fibrillation; D68.69 Other thrombophilia; I10 Essential (primary) hypertension
CPT/HCPCS: 78452; 93017; A9500; J0153

== ENCOUNTER → 2022-08-01 | Outpatient (CLI) | payer MEDICARE, OTHER ==
[~2022-08-01] MED LIST changes: -ADENOSINE 54 MG in GIVE UN-DILUTED 0 ML IV STA
[2022-08-01 10:18] LABS: Potassium 4.6 mmol/L (3.5-5.1)
[2022-08-01 10:26] LABS: Albumin 3.8 g/dL (3.4-5.0); BUN/Creatinine Ratio 16.1; Bilirubin, Total 0.8 mg/dL (0.2-1.0); Total Protein 8.2 g/dL (6.4-8.2)
== END | disposition home or self-care (01) ==
LOC: LAB 09:05
PROVIDERS: ATTEND Internal Medicine
DX: E03.9 Hypothyroidism, unspecified (principal); R79.89 Other specified abnormal findings of blood chemistry
CPT/HCPCS: 36415; 80053; 84439; 84443

== ENCOUNTER → 2022-12-18 | Outpatient (CLI) | payer MEDICARE, OTHER ==
[~2022-12-18] MED LIST changes: +AMIO200T13 PO; -AMIO200T4 PO
[2022-12-18 10:38] LABS: Basophils # (auto) 0.1 10 ^3/uL (0-0.2); Basophils % (auto) 1.4 % (0.0-2.0); Eosinophils # (auto) 0.3 10 ^3/uL (0-0.8); Hematocrit 41.2 % (36.0-46.0); Hemoglobin 14.1 g/dL (12.2-16.2); Lymphocytes # (auto) 1.5 10 ^3/uL (0.4-5.4); Lymphocytes % (auto) 22.5 % (10.0-50.0); Mean Corpuscular Hemoglobin 32.5 pg (28.0-32.0); Mean Corpuscular Hgb Conc. 34.3 g/dL (32.0-36.0); Mean Corpuscular Volume 94.8 fL (80.0-100.0); Monocytes # (auto) 0.5 10 ^3/uL (0-1.3); Monocytes % (auto) 7.5 % (0.0-12.0); Neutrophils # (auto) 4.2 10 ^3/uL (1.6-8.6); Neutrophils % (auto) 63.6 % (37.0-80.0); Nucleated Red Blood Cells % 0.1 %; Red Blood Cells 4.34 10^6/uL (4.0-5.20); White Blood Cell 6.6 10^3/uL (4.4-10.8)
[2022-12-18 10:58] LABS: Urine Bacteria NONE SEEN /hpf (None Seen); Urine Blood Negative /uL (Negative); Urine Specific Gravity 1.016 (1.001-1.035); Urine WBC 5 /hpf (0 - 5)
[2022-12-18 11:19] LABS: Calcium 8.8 mg/dL (8.5-10.1)
[2022-12-18 11:24] LABS: BUN/Creatinine Ratio 17.4 (10.0-20.0); Bilirubin, Total 0.8 mg/dL (0.2-1.0); Total Protein 8.2 g/dL (6.4-8.2); Uric Acid 4.8 mg/dL (2.6-6.0)
== END | disposition home or self-care (01) ==
LOC: LAB 10:18
PROVIDERS: ATTEND Internal Medicine
DX: I10 Essential (primary) hypertension (principal); I48.91 Unspecified atrial fibrillation
CPT/HCPCS: 36415; 80053; 80061; 81001; 82043; 84439; 84443; 84550; 85025; 85652

== ENCOUNTER 2023-02-07 12:53 | Day surgery (SDC) | payer MEDICARE, OTHER ==
[2023-02-06 11:58] LABS: INR 1.04 (0.9-1.15); Partial Thromboplastin Time 26.9 SEC (24.5-34.5); Prothrombin Time 10.9 sec (9.3-11.8)
[2023-02-06 13:28] LABS: Albumin 3.8 g/dL (3.4-5.0); Calcium 8.8 mg/dL (8.5-10.1); Potassium 4.9 mmol/L (3.5-5.1)
[2023-02-06 13:32] LABS: BUN/Creatinine Ratio 18.8 (10.0-20.0); Bilirubin, Total 0.8 mg/dL (0.2-1.0); Total Protein 7.9 g/dL (6.4-8.2)
[2023-02-06 16:04] LABS: Basophils # (auto) 0.1 10 ^3/uL (0-0.2); Basophils % (auto) 1.2 % (0.0-2.0); Eosinophils # (auto) 0.4 10 ^3/uL (0-0.8); Eosinophils % (auto) 4.5 % (0.0-7.0); Hemoglobin 13.4 g/dL (12.2-16.2); Lymphocytes % (auto) 24.8 % (10.0-50.0); Mean Corpuscular Hgb Conc. 33.6 g/dL (32.0-36.0); Mean Corpuscular Volume 95.5 fL (80.0-100.0); Monocytes # (auto) 0.7 10 ^3/uL (0-1.3); Monocytes % (auto) 8.3 % (0.0-12.0); Neutrophils # (auto) 4.9 10 ^3/uL (1.6-8.6); Neutrophils % (auto) 61.2 % (37.0-80.0); Red Blood Cells 4.19 10^6/uL (4.0-5.20); Red Cell Distribution Width 13.1 % (11.8-14.3); White Blood Cell 8.1 10^3/uL (4.4-10.8)
[~2023-02-07] VITALS: Ht 152.4 cm; Wt 66.2 kg
[~2023-02-07 12:53] MED LIST changes: +FLUMAZENIL 0.1 MG/ML INJ 10ML MDV IV ONE; +NALOXONE HCL 0.4 MG/ML VIAL ONE; +SODIUM CHLORIDE LOCK 10 ML ONE
[2023-02-07 13:59] VITALS: O2SAT 99
[2023-02-07] MEDS: diphenhdrAMINE HCL 50 MG/1 ML VL ONE ×2 (14:05→14:06)
[2023-02-07] MEDS: fentaNYL CITRATE 100 MCG/2 ML VL ONE ×4 (14:05→14:49)
[2023-02-07] MEDS: MIDAZOLAM HCL 5 MG/ML-1ML VIAL ONE ×5 (14:05→14:54)
[2023-02-07 15:08] VITALS: TEMP 98; O2SAT 98
[2023-02-07 16:30] VITALS: BP 119/43; PULSE 62; RESP 15; O2SAT 95
== END 2023-02-07 16:35 | disposition home or self-care (01) ==
LOC: GI 12:53
PROVIDERS: ATTEND Internal Medicine Gastroenterology
DX: K59.00 Constipation, unspecified (principal); K57.30 Diverticulosis of large intestine without perforation or abscess without bleeding; K64.8 Other hemorrhoids; Z86.010 Personal history of colon polyps; K63.5 Polyp of colon
CPT/HCPCS: 36415; 45385; 80053; 85025; 85610; 85730; 88305; J1200; J2250; J3010; J7030; 99152; 99153

== ENCOUNTER → 2023-03-20 | Outpatient (CLI) | payer MEDICARE, OTHER ==
[~2023-03-20] MED LIST changes: -FLUMAZENIL 0.1 MG/ML INJ 10ML MDV IV ONE; -NALOXONE HCL 0.4 MG/ML VIAL ONE; -SODIUM CHLORIDE LOCK 10 ML ONE
== END | disposition home or self-care (01) ==
LOC: XYW 10:11
PROVIDERS: ATTEND Student in an Organized Health Care Education/Training Program
DX: I35.1 Nonrheumatic aortic (valve) insufficiency (principal)
CPT/HCPCS: 93306

== ENCOUNTER → 2023-03-27 | Outpatient (CLI) | payer MEDICARE, OTHER ==
[2023-03-27 10:40] LABS: Basophils # (auto) 0.1 10 ^3/uL (0-0.2); Basophils % (auto) 1.9 % (0.0-2.0); Eosinophils # (auto) 0.4 10 ^3/uL (0-0.8); Eosinophils % (auto) 6.9 % (0.0-7.0); Hematocrit 42.8 % (36.0-46.0); Hemoglobin 14.8 g/dL (12.2-16.2); Lymphocytes # (auto) 1.5 10 ^3/uL (0.4-5.4); Lymphocytes % (auto) 25.8 % (10.0-50.0); Mean Corpuscular Hemoglobin 32.7 pg (28.0-32.0); Mean Corpuscular Hgb Conc. 34.6 g/dL (32.0-36.0); Mean Corpuscular Volume 94.3 fL (80.0-100.0); Monocytes # (auto) 0.5 10 ^3/uL (0-1.3); Monocytes % (auto) 7.9 % (0.0-12.0); Neutrophils # (auto) 3.3 10 ^3/uL (1.6-8.6); Neutrophils % (auto) 57.5 % (37.0-80.0); Nucleated Red Blood Cells % 0.2 %; Red Blood Cells 4.54 10^6/uL (4.0-5.20); Red Cell Distribution Width 12.6 % (11.8-14.3); White Blood Cell 5.7 10^3/uL (4.4-10.8)
[2023-03-27 11:10] LABS: Alanine Aminotransferase 54 U/L (7-40); Albumin 4.6 g/dL (3.2-4.8); Alkaline Phosphatase 58 U/L (46-116); Anion Gap 6 (5-15); Aspartate Aminotransferase 50 U/L (13-40); Bilirubin, Total 1.2 mg/dL (0.2-1.0); Blood Urea Nitrogen 16 mg/dL (9-23); Calcium 9.7 mg/dL (8.5-10.1); Carbon Dioxide 26 mmol/L (20-30); Chloride 108 mmol/L (98-107); Cholesterol 138 mg/dL (< 200); Glucose 109 mg/dL (74-106); HDL Cholesterol 50 mg/dL (40-59); LDL Cholesterol 78 mg/dL (< 100); Potassium 4.5 mmol/L (3.5-5.1); Sodium 140 mmol/L (136-145); Total Protein 8.1 g/dL (5.7-8.2); Triglycerides 127 mg/dL (< 150)
[2023-03-27 11:32] LABS: INR 1.08 (0.9-1.15); Prothrombin Time 11.3 sec (9.3-11.8)
[2023-03-29 10:58] LABS: Hepatitis B Surface Antigen Negative (Negative)
[2023-03-29 11:20] LABS: Hepatitis C Antibody Negative (Negative)
== END | disposition home or self-care (01) ==
LOC: LAB 10:02
PROVIDERS: ATTEND Internal Medicine Gastroenterology
DX: Z11.59 Encounter for screening for other viral diseases (principal); R94.5 Abnormal results of liver function studies; I48.91 Unspecified atrial fibrillation; I10 Essential (primary) hypertension; E78.00 Pure hypercholesterolemia, unspecified; Z72.89 Other problems related to lifestyle
CPT/HCPCS: 36415; 80053; 80061; 82728; 85025; 85610; 86038; 86803; 87340